=== PATIENT | female | born 1950 | race African-American/Black ===

== ENCOUNTER 2019-11-02 08:15 | Outpatient (CLI) | payer MEDICARE, OTHER, SELFPAY ==
[2019-11-02 09:08] LABS: Alanine Aminotransferase 19 U/L (4-35); Albumin Level 3.7 g/dL (3.5-5.1); Alkaline Phosphatase 115 U/L (38-126); Aspartate Amino Transferase 32 U/L (14-36); Bilirubin,Total 0.9 mg/dL (0.2-1.3); Blood Urea Nitrogen 19 mg/dL (7-17); Calcium 8.6 mg/dL (8.4-10.2); Carbon Dioxide 30 mmol/L (22-30); Chloride 105 mmol/L (98-107); Cholesterol 190 mg/dL (0-200); Estimated Glomerular Filt Rate 60; Glucose 102 mg/dL (65-105); HDL Direct 57 mg/dL; Sodium 138 mmol/L (137-145); Triglycerides 86 mg/dL (<150)
[2019-11-02 09:19] LABS: LDL Cholesterol Direct 71 mg/dL
[2019-11-02 09:30] LABS: Creatinine Urine 88.5 mg/dL
[2019-11-02 10:26] LABS: MALB Creatinine Ratio 401.1 mg/g (0-30)
== END 2019-11-02 08:16 | disposition home or self-care (01) ==
LOC: ANHLAB 08:18
PROVIDERS: PCP Internal Medicine; Visit Provider Physician Assistant
DX: E11.9 Type 2 diabetes mellitus without complications (principal)
CPT/HCPCS: 36415; 80053; 80061; 82043; 83036

== ENCOUNTER 2019-11-04 10:29 | Outpatient (CLI) | payer MEDICARE, OTHER, SELFPAY ==
[2019-11-04 12:40] LABS: Add Urine Microscopic? YES; Appearance Urine Clear (Clear); Bilirubin Urine Negative (Negative); Blood Urine 3+ (Negative); Color Urine Yellow (Yellow); Glucose Urine UA Negative (Negative); Ketones Urine Negative (Negative); Leukocyte Esterase Ur Negative LEU/UL (NEGATIVE); Mucus Urine Rare /lpf; Nitrate Urine Negative (Negative); Protein Urine 2+ mg/dL (Negative); RBC Urine 0-2 /hpf (0-2); Specific Grav Ur 1.012 (1.001-1.035); Squamous Epithelial Cell Urine Occasional /hpf (Few); Urobilinogen Urine Negative mg/dL (<2.0); WBC Urine 0-3 /hpf (0-3)
== END 2019-11-04 10:30 | disposition home or self-care (01) ==
LOC: ANHLAB 10:31
PROVIDERS: PCP Internal Medicine; Visit Provider Physician Assistant
DX: R31.9 Hematuria, unspecified (principal); R53.83 Other fatigue
CPT/HCPCS: 36415; 81001; 86038; 87086

== ENCOUNTER 2019-12-23 09:17 | Outpatient (CLI) | payer MEDICARE, SELFPAY ==
[2019-12-23 09:48] LABS: Blood Urea Nitrogen 18 mg/dL (7-17); Calcium 8.7 mg/dL (8.4-10.2); Carbon Dioxide 28 mmol/L (22-30); Chloride 104 mmol/L (98-107); Estimated Glomerular Filt Rate 60; Glucose 197 mg/dL (65-105); Sodium 136 mmol/L (137-145)
== END 2019-12-23 09:18 | disposition home or self-care (01) ==
PROVIDERS: PCP Internal Medicine; Visit Provider Internal Medicine Cardiovascular Disease
DX: R06.00 Dyspnea, unspecified (principal); I50.32 Chronic diastolic (congestive) heart failure
CPT/HCPCS: 36415; 80048

== ENCOUNTER 2020-01-12 09:52 | Outpatient (CLI) | payer MEDICARE, OTHER, SELFPAY ==
--- NOTE | ~2020-01-12 | US_ITS ---
EXAMINATION: US pelvic complete w TV EXAM DATE: 01/12/2020 11:34 INDICATION: Postmenopausal bleeding. TECHNIQUE: Pelvic transabdominal and transvaginal sonogram was performed. There are multiple graysca le and Doppler images available for interpretation. There is no prior study for comparison. FINDINGS: Uterus measures 10.5 x 4.4 x 5.1 cm, is anteverted and probably has subcentimeter anterior fibroid. Endometrial stripe measures 9 mm, mildly thickened for postmenopausal status. There is no free pelvic fluid. Right adnexa: The ovary is not identified. There is no adnexal mass. Left adnexa: The ovary is not identified. There is no adnexal mass. IMPRESSION: Endometrium mildly thickened for postmenopausal status, could be hyperplasia or carcinoma . Consider histologic correlation. Reviewed, dictated and finalized at location A. IMPRESSION: Endometrium mildly thickened for postmenopausal status, could be hy perplasia or carcinoma. Consider histologic correlation.
== END 2020-01-12 09:53 | disposition home or self-care (01) ==
PROVIDERS: PCP Internal Medicine; Visit Provider Obstetrics & Gynecology
DX: N95.0 Postmenopausal bleeding (principal)
CPT/HCPCS: 76830; 76856

== ENCOUNTER 2020-01-29 09:08 | Outpatient (CLI) | payer MEDICARE, OTHER, SELFPAY ==
[2020-01-29 10:14] LABS: Hematocrit 41.7 % (37.0-47.0); Hemoglobin 13.6 g/dL (12.0-15.0); Mean Corpuscular HGB Conc 32.6 g/dl (32-36); Mean Corpuscular Hemoglobin 30.7 pg (26-34); Mean Corpuscular Volume 94.1 fl (80-100); Mean Platelet Volume 11.7 fl (7.4-10.4); Platelet Count Result 154 k/mm3 (150-375); Red Blood Count 4.43 M/mm3 (4.2-5.4); Red Cell Distribution Width 12.4 % (11.5-14.5); White Blood Count 6.8 K/mm3 (4.5-10.0)
[2020-01-29 10:25] LABS: Hemoglobin A1C 7.5 % (<5.7); Potassium 4.2 mmol/L (3.4-5.0)
[2020-01-29 10:33] LABS: Alanine Aminotransferase 20 U/L (4-35); Albumin Level 3.5 g/dL (3.5-5.1); Alkaline Phosphatase 111 U/L (38-126); Anion Gap 4 mmol/L (8-16); Aspartate Amino Transferase 30 U/L (14-36); Bilirubin,Total 0.7 mg/dL (0.2-1.3); Blood Urea Nitrogen 17 mg/dL (7-17); Calcium 8.6 mg/dL (8.4-10.2); Carbon Dioxide 29 mmol/L (22-30); Chloride 104 mmol/L (98-107); Estimated Glomerular Filt Rate 60; Glucose 164 mg/dL (65-105); Sodium 137 mmol/L (137-145)
== END 2020-01-29 09:09 | disposition home or self-care (01) ==
PROVIDERS: PCP Physician Assistant; Visit Provider Physician Assistant
DX: R53.83 Other fatigue (principal); E11.9 Type 2 diabetes mellitus without complications
CPT/HCPCS: 36415; 80053; 83036; 84443; 85027

== ENCOUNTER 2020-03-06 00:31 | Outpatient (CLI) | payer MEDICARE, OTHER, SELFPAY ==
[2020-03-06 18:12] LABS: SARS-CoV-2 RNA PCR Negative
== END 2020-03-06 00:32 | disposition home or self-care (01) ==
LOC: ANHCOVIDDT 00:31
PROVIDERS: PCP Physician Assistant; Visit Provider Obstetrics & Gynecology
DX: Z20.828 Contact with and (suspected) exposure to other viral communicable diseases (principal)
CPT/HCPCS: 87635; C9803; U0003

== ENCOUNTER 2020-03-08 02:11 | Day surgery (SDC) | payer MEDICARE, OTHER, SELFPAY ==
[2020-02-29 14:33] VITALS: BMI 44.8
[2020-03-08] VITALS (8 sets, daily range): BP systolic 109–168; BP diastolic 67–86; PULSE 68–71; RESP 12–22; TEMP 36.6–36.7; O2SAT 94–99; BMI 45.7
--- NOTE | 2020-03-08 08:41 | PM.IMHP ---
H&P: HPI History of Present Illness Date/Time: 03/08/20 08:41 Patient is a 69 y/o female presented with postmenopausal spotting over 2 months ago. Her subsequent ultrasound showed thickened endometrial stripe. Subsequent endometrial biopsy showed endometrial polyp. She was recommended for Hysteroscopy and Dilation and currettage and removal of polyp if visualized. She has had a previous D and C hysteroscopy for polyp in 2016. Chief complaint: Postmenopausal Bleeding/ Endometrial Polyp Narrative: Daisha Yoon is a 69 year old female Review of Systems Review of Systems: All systems reviewed & are unremarkable except as noted in HPI and below Cardiovascular: Cardiovascular: Reports no additional cardiovascular complaints, Denies chest pain and Denies dyspnea Respiratory: Respiratory: Reports no additional respiratory complaints and Denies dyspnea Gastrointestinal: Gastrointestinal: Reports abdominal pain, Denies change in bowel habits, Denies diarrhea, Denies nausea and Denies vomiting Genitourinary: Genitourinary: Reports pelvic pain Musculoskeletal: Musculoskeletal: Reports back pain Integumentary/Breasts: Skin/Breast: Reports system reviewed and no additional complaints, except as docu Neurologic: Reports system reviewed and no additional complaints, except as documented [facility] Family History Family History Mother Patient's mother is Hypertension Family history of type 2 diabetes mellitus Father Patient's father is Hypertension Family history of type 2 diabetes mellitus Grandparent Family history of malignant neoplasm of cervix Other Cerebrovascular accident Diabetes mellitus Family history of Alzheimer's disease Family history of cardiovascular disease Family history of congestive heart failure Family history of kidney disease Family history of sleep apnea Family history of thyroid disease Social History Social History Smoking status: Never smoker Second hand tobacco smoke exposure: No Alcohol intake: never Substance use: never Living arrangements: with family Spiritual care concerns: No Meds Home Medications and Allergies Home Medications Medication Instructions Recorded Confirmed Type aspirin 81 mg tablet,delayed 81 mg PO DAILY 05/13/19 03/08/20 History release blood sugar diagnostic #10 each 05/13/19 02/09/20 History clopidogrel 75 mg tablet 75 mg PO DAILY 05/13/19 03/08/20 History insulin lispro 100 unit/mL 1 sliding scale dose SUB-Q 05/13/19 03/08/20 History subcutaneous solution USEASDIRECTD meclizine 25 mg tablet 25 mg PO TID PRN 05/13/19 03/08/20 History nitroglycerin 0.4 mg sublingual 0.4 mg SUBLINGUAL Q5M PRN 05/13/19 03/08/20 History tablet gabapentin 600 mg tablet 1,200 mg PO BID #360 tablet 01/05/20 03/08/20 Rx albuterol sulfate 90 mcg/actuation 2 puff INHALATION Q4-6H PRN #8.5 gm 02/03/20 03/08/20 Rx aerosol inhaler ezetimibe 10 mg tablet 10 mg PO DAILY #90 tablet 02/03/20 03/08/20 Rx losartan 100 mg tablet 100 mg PO DAILY #90 tablet 02/22/20 03/08/20 Rx alprazolam [Xanax] 1 mg PO BID 02/29/20 03/08/20 History atenolol 100 mg PO HS 02/29/20 03/08/20 History furosemide [Lasix] 80 mg PO QAM 02/29/20 03/08/20 History insulin pump-infus. set-meter 02/29/20 02/29/20 History Allergies Allergy/AdvReac Type Severity Reaction Status Date / Time nitrofurantoin Allergy Intermediate DEHYDRATION Verified 03/08/20 10:47 ciprofloxacin Allergy Mild Itching Verified 03/08/20 10:47 Exam Const: Orientation/consciousness: oriented to person and oriented to place HENMT: Head: normal to inspection Eyes: General: appearance normal, both eyes and all related structures Resp: Effort & Inspection: normal respiratory effort Auscultation: clear to auscultation bilaterally Cardio: Rate: regular rate Rhythm: regular rhythm
--- NOTE | 2020-03-08 11:25 | WPDANESEPPF ---
Anes - Initial Pre Proc Eval Procedure: Operation Date: 03/08/20 12:00 Proposed Procedures p Hysteroscopy, Dilation And Curettage With Myosure - Sam Ronquillo MD Date/Time: 03/08/20 11:25 Surgeon: Sam Ronquillo MD Pre Op Diagnosis: Postmenopausal Bleeding/ Endometrial Polyp Patient Data Age: 69 Gender: F Height: 6 ft Weight: 152.9 kg Allergies Allergy/AdvReac Type Severity Reaction Status Date / Time nitrofurantoin Allergy Intermediate DEHYDRATION Verified 03/08/20 10:47 ciprofloxacin Allergy Mild Itching Verified 03/08/20 10:47 Home Medications Medication Instructions Recorded Confirmed Type aspirin 81 mg tablet,delayed 81 mg PO DAILY 05/13/19 03/08/20 History release blood sugar diagnostic #10 each 05/13/19 02/09/20 History clopidogrel 75 mg tablet 75 mg PO DAILY 05/13/19 03/08/20 History insulin lispro 100 unit/mL 1 sliding scale dose SUB-Q 05/13/19 03/08/20 History subcutaneous solution USEASDIRECTD meclizine 25 mg tablet 25 mg PO TID PRN 05/13/19 03/08/20 History nitroglycerin 0.4 mg sublingual 0.4 mg SUBLINGUAL Q5M PRN 05/13/19 03/08/20 History tablet gabapentin 600 mg tablet 1,200 mg PO BID #360 tablet 01/05/20 03/08/20 Rx albuterol sulfate 90 mcg/actuation 2 puff INHALATION Q4-6H PRN #8.5 gm 02/03/20 03/08/20 Rx aerosol inhaler ezetimibe 10 mg tablet 10 mg PO DAILY #90 tablet 02/03/20 03/08/20 Rx losartan 100 mg tablet 100 mg PO DAILY #90 tablet 02/22/20 03/08/20 Rx alprazolam [Xanax] 1 mg PO BID 02/29/20 03/08/20 History atenolol 100 mg PO HS 02/29/20 03/08/20 History furosemide [Lasix] 80 mg PO QAM 02/29/20 03/08/20 History insulin pump-infus. set-meter 02/29/20 02/29/20 History Patient hx anesthesia problems: none Family hx anesthesia problems: none PMFSH Past Medical History Medical History (Updated 03/08/20 @ 11:30 by Bhupinder Galicia MD) Morbid obesity FAY (obstructive sleep apnea) Family History Family History Mother Patient's mother is Hypertension Family history of type 2 diabetes mellitus Father Patient's father is Hypertension Family history of type 2 diabetes mellitus Grandparent Family history of malignant neoplasm of cervix Other Cerebrovascular accident Diabetes mellitus Family history of Alzheimer's disease Family history of cardiovascular disease Family history of congestive heart failure Family history of kidney disease Family history of sleep apnea Family history of thyroid disease Social History Social History Smoking status: Never smoker Second hand tobacco smoke exposure: No Alcohol intake: never Substance use: never Living arrangements: with family Spiritual care concerns: No Anes - Eval Final PreProcedure Day of Procedure 03/08/20 11:25 Patient weight: morbidly obese Heart: regular rate and rhythm Lungs: clear to auscultation Airway: Mallampati scale class II Neurological: alert and oriented Last oral intake: >/= 8 hours ASA classification: IV Emergent: no Anesthetic plan: proceed Anesthesia type and monitoring: general LMA and standard monitoring Informed Consent: The patient's anesthetic plan and its attendant risks and benefits were discussed with the patient/family/POA. Questions were solicited and answers provided to the satisfaction of the patient/family/POA.
--- NOTE | 2020-03-08 11:27 | WPDHPUPDATE1 ---
History and Physical Update Update Date/Time: 03/08/20 11:27 History and Physical has been reviewed, including an updated exam of the patient. There are NO changes in the patient's condition. Risks, benefits, and alternatives have been discussed and questions answered. Patient agrees to proceed with procedure.
[2020-03-08] MEDS: LACTATED RINGERS 1,000 ML 30 ML IV CONT (11:36)
--- NOTE | 2020-03-08 11:46 | SUR.PREOP ---
1045; PT HAS AN INSULIN PUMP AND A CONTINUOUS SENSOR FOR HER BLOOD SUGAR
--- NOTE | 2020-03-08 11:48 | SUR.PREOP ---
1135: DR SERNA CANCELLED PO TYLENOL
[2020-03-08] MEDS: ceFAZolin 3 GM/D5W 100 ML 100 ML IVPB (12:09)
[2020-03-08] MEDS: fentaNYL CITRATE INJ (*CRX) 100 MCG/2 ML VIAL 25 MCG IV PUSH (13:20)
[2020-03-08 13:25] LABS: Glucose Point of Care 131 (65-105)
--- NOTE | 2020-03-08 13:32 | PM.PROC ---
Procedure Note - Detailed Date of procedure: 03/08/20 Pre-op diagnosis: Postmenopausal Bleeding/ Endometrial Polyp Post-op diagnosis: same Procedure performed: Diagnostic Hysteroscopy and Dilation and Currettage Description of procedure: After informed consent was obtained patient was taken to the operating room. Adequate IV sedation was obtained. She then was given LMA. She was placed in high lithotomy position and prepped and draped in sterile fashion. Attention was turned to the vagina. Speculum was inserted. Single-tooth tenaculum placed on anterior lip of the cervix. The uterus was sounded to 7 centimeters. The cervix was dilated to a size 8 Julian dilator. The hysteroscope was inserted. Dilated several times since could advance the camera to entrance of cavity which appeared diffusely scarred. The camera would only advance to entrance of the rest of the cavity appeared scarred. During the currettage minimal tissue and cavity palpated scarred. The hysteroscope was removed and a sharp curettage was performed. Minimal tissue obtained. The tenaculum was removed. Small laceration at the posterior cervix from the tenaculum. Hemostasis obtained with figure of eight suture of 0 vicryl. The speculum was removed. There was a small area of stretched skin at introitus, no bleeding. The patient tolerated the procedure well. There was a 50 cc discrepancy of insufflation fluid of normal saline. Patient was taken to recovery room in stable condition the sponge count was correct x3. Anesthesia: MAC and local Surgeon: Sam Ronquillo MD Estimated blood loss (mL): 5 Drains: No Packing: No Pathology: yes (1. Endocervical currettage 2. Endometrial currettings) Complications: No immediate complications Condition: stable Disposition: same day Findings: Uterus sound to 8cm, uterine cavity normal appearing, no lesions. Insufflation fluid 1000cc/950cc.
== END 2020-03-08 14:58 | disposition home or self-care (01) ==
PROVIDERS: PCP Physician Assistant; Visit Provider Obstetrics & Gynecology
PROC: 0U5B8ZZ Destruction of Endometrium, Via Natural or Artificial Opening Endoscopic (ICD-10-PCS; CPT 58563; principal; 2020-03-08 12:00)
DX: N95.0 Postmenopausal bleeding (principal); N84.0 Polyp of corpus uteri; E11.9 Type 2 diabetes mellitus without complications; Z79.02 Long term (current) use of antithrombotics/antiplatelets; Z79.82 Long term (current) use of aspirin; Z79.4 Long term (current) use of insulin; Z96.41 Presence of insulin pump (external) (internal); G47.33 Obstructive sleep apnea (adult) (pediatric); E66.01 Morbid (severe) obesity due to excess calories; Z68.42 Body mass index [BMI] 45.0-49.9, adult
CPT/HCPCS: 58558; 88305; A9270; J0690; J1100; J2405; J2704; J3010; J7030; J7120

== ENCOUNTER 2020-04-08 01:13 | Outpatient (CLI) | payer MEDICARE, OTHER, SELFPAY ==
[2020-04-08 18:04] LABS: SARS-CoV-2 RNA PCR Negative
== END 2020-04-08 01:14 | disposition home or self-care (01) ==
LOC: ANHCOVIDDT 01:13
PROVIDERS: PCP Physician Assistant; Visit Provider Internal Medicine Critical Care Medicine
DX: R09.89 Other specified symptoms and signs involving the circulatory and respiratory systems (principal); Z20.828 Contact with and (suspected) exposure to other viral communicable diseases
CPT/HCPCS: 87635; C9803; U0003

== ENCOUNTER 2020-05-01 11:40 | Outpatient (CLI) | payer MEDICARE, OTHER, SELFPAY ==
[2020-05-01 12:35] LABS: Add Urine Microscopic? YES; Appearance Urine Clear (Clear); Bacteria Urine Trace /hpf; Bilirubin Urine Negative (Negative); Blood Urine Negative (Negative); Color Urine Straw (Yellow); Glucose Urine UA Negative (Negative); Ketones Urine Negative (Negative); Leukocyte Esterase Ur Negative LEU/UL (NEGATIVE); Mucus Urine Rare /lpf; Nitrate Urine Negative (Negative); Protein Urine 1+ mg/dL (Negative); RBC Urine 0-2 /hpf (0-2); Specific Grav Ur 1.012 (1.001-1.035); Squamous Epithelial Cell Urine Occasional /hpf (Few); Urobilinogen Urine Negative mg/dL (<2.0); WBC Urine 0-3 /hpf (0-3)
[2020-05-01 12:45] LABS: Hemoglobin A1C 7.7 % (<5.7)
[2020-05-01 12:58] LABS: Creatinine Urine 71.7 mg/dL
[2020-05-01 13:02] LABS: Microalbumin Urine Random 139.1 mg/L (0-16.7)
== END 2020-05-01 11:41 | disposition home or self-care (01) ==
LOC: ANHLAB 11:41
PROVIDERS: PCP Physician Assistant; Visit Provider Physician Assistant
DX: R31.0 Gross hematuria (principal); E11.9 Type 2 diabetes mellitus without complications
CPT/HCPCS: 36415; 81001; 82043; 83036; 87086; 87088

== ENCOUNTER 2020-05-03 09:07 | Outpatient (CLI) | payer MEDICARE, OTHER, SELFPAY ==
[2020-05-03 09:50] LABS: Alanine Aminotransferase 21 U/L (4-35); Albumin Level 3.5 g/dL (3.5-5.1); Alkaline Phosphatase 107 U/L (38-126); Anion Gap 2 mmol/L (8-16); Aspartate Amino Transferase 42 U/L (14-36); Bilirubin,Total 0.9 mg/dL (0.2-1.3); Blood Urea Nitrogen 19 mg/dL (7-17); Calcium 8.7 mg/dL (8.4-10.2); Carbon Dioxide 30 mmol/L (22-30); Chloride 105 mmol/L (98-107); Estimated Glomerular Filt Rate 60; Glucose 166 mg/dL (65-105); Potassium 4.4 mmol/L (3.4-5.0); Sodium 137 mmol/L (137-145)
== END 2020-05-03 09:08 | disposition home or self-care (01) ==
PROVIDERS: PCP Physician Assistant; Visit Provider Physician Assistant
DX: E11.9 Type 2 diabetes mellitus without complications (principal)
CPT/HCPCS: 36415; 80053

== ENCOUNTER 2020-05-29 01:00 | Outpatient (CLI) | payer MEDICARE, OTHER, SELFPAY ==
[2020-05-29 17:10] LABS: SARS-CoV-2 RNA PCR Negative
== END 2020-05-29 01:01 | disposition home or self-care (01) ==
LOC: ANHCOVIDDT 01:01
PROVIDERS: PCP Physician Assistant; Visit Provider Internal Medicine Critical Care Medicine
DX: R68.89 Other general symptoms and signs (principal); Z20.828 Contact with and (suspected) exposure to other viral communicable diseases
CPT/HCPCS: 87635; C9803; U0003

== ENCOUNTER 2020-07-04 10:31 | Outpatient (CLI) | payer MEDICARE, OTHER, SELFPAY ==
--- NOTE | ~2020-07-04 | MM_ITS ---
EXAMINATION: MM screening aggie BI w esteban HISTORY: Screening mammogram TECHNIQUE: Craniocaudal and mediolateral oblique 3-D tomosynthesis images were obtained and synthetic 2-D images were generated. CAD analysis was submitted and interpreted. COMPARISON: No prior mammogram is available for comparison at this institution. BREAST PARENCHYMAL COMPOSITION: There are scattered areas of fibroglandular density. FINDINGS: There is no evidence of suspicious mass, calcification, or architectural distortion to sugg est malignancy in either breast. IMPRESSION: 1. No mammographic evidence of malignancy. 2. Recommend routine screening mammography in one year. BI-RADS Category 1: Negative Reviewed, dictated and finalized at location A. COMMISSIONER
== END 2020-07-04 10:32 | disposition home or self-care (01) ==
PROVIDERS: PCP Physician Assistant; Visit Provider Obstetrics & Gynecology
DX: Z12.31 Encounter for screening mammogram for malignant neoplasm of breast (principal)
CPT/HCPCS: 77063; 77067

== ENCOUNTER 2020-07-25 09:05 | Outpatient (CLI) | payer MEDICARE, OTHER, SELFPAY ==
--- NOTE | 2020-08-07 13:56 | WPDHOMESLEEP ---
Sleep Study - Home Unattended Date of Study: 07/25/20 Ordering Provider: Karri Jules MD Interpreting Provider: Glenys Graham MD Home Sleep Study Type: Apnea Link Air Height: 1.83 m Weight: 151.953 kg Body Mass Index: 45.4 Neck Circumference (inches): 19 [place]: 7 Reason for Sleep Study Constant loud snoring; known FAY, wants to be treated again FAY diagnosed on a basic NPSG June 09, 2016 with moderate obstructive sleep apnea; CPAP titration 06/30/2016; 9 cm optimal pressure CPAP was taken out of the house in 2019 when she was not using it regularly Sleep History Daisha Yoon is a 70-year-old female referred by Dr Jules who treats her for HFpEF, hypertension, lower extremity edema, CAD who constantly snores and it frequently is loud enough that others complain about it. She rarely awakens at night with heartburn, belching or coughing. She never awakens from sleep feeling short of breath. She occasionally has trouble sleeping if she has a cold. She does not wake up gasping for breath at night, does not have breathing problems at night observed by others and does not sweat excessively at night. She rarely notices her heart pounding or beating irregularly night. She occasionally falls asleep during the day, rarely involuntarily never while driving. She does not fall asleep while exerting physical effort. She does not have loss of muscle tone with strong emotion. She does not have daytime difficulties due to excessive sleepiness. She does not feel paralyzed on waking or falling asleep. She denies having vivid dreamlike scenes upon awakening or falling asleep. She is never a free to go to sleep. She occasionally has nightmares. She frequently remembers her dreams. She occasionally has racing thoughts. She rarely feels sad or depressed. She occasionally has anxiety. She occasionally has muscular tension and occasionally notices parts of her body jerking. She does not kick at night. She occasionally has crawling and aching feelings in her legs. She frequently has leg pain at night and frequently has morning jaw pain. She frequently grinds her teeth during sleep. She occasionally has bothered by pain during the day, occasionally is awakened by pain at night. She frequently wakes up feeling stiff in the morning occasionally with sore achy muscles occasionally with pain in the neck and spine. She has insomnia and fatigue. Normal bedtime is 11:00 p.m. falling asleep within 1 hour waking once at night to urinate. While awake she will watch television. she then returns to sleep. She wakes the morning at 5:00 a.m.. We can schedule is the same. She estimates getting 4-5 hours of sleep on regular night. She does take naps. A short nap may be refreshing. She rarely awakens feeling refreshed. She frequently has excessive daytime sleepiness. She rarely has morning headaches. Habits: Never smoked tobacco. Caffeine she drinks soda daily. No alcohol or recreational drugs. [facility] Past Medical History Medical History (Updated 08/07/20 @ 14:02 by Glenys Graham MD) Diabetes mellitus History of completed stroke Hyperlipidemia Morbid obesity Neuropathy FAY (obstructive sleep apnea) Family History Family History Mother Patient's mother is Hypertension Family history of type 2 diabetes mellitus Father Patient's father is Hypertension Family history of type 2 diabetes mellitus Grandparent Family history of malignant neoplasm of cervix Other Cerebrovascular accident Diabetes mellitus Family history of Alzheimer's disease Family history of cardiovascular disease Family history of congestive heart failure Family history of kidney disease Family history of sleep apnea Family history of thyroid disease Social History Social History Smoking status: Never smoker Second [place]
[2020-08-07 14:12] VITALS: BMI 45.4
== END 2020-07-25 09:06 | disposition home or self-care (01) ==
LOC: ANHCSM 09:06
PROVIDERS: PCP Physician Assistant; Visit Provider Internal Medicine Cardiovascular Disease
DX: G47.33 Obstructive sleep apnea (adult) (pediatric) (principal); R94.39 Abnormal result of other cardiovascular function study; R06.00 Dyspnea, unspecified
CPT/HCPCS: 95806

== ENCOUNTER 2020-08-04 07:48 | Outpatient (CLI) | payer MEDICARE, OTHER, SELFPAY ==
[2020-08-04 08:22] LABS: Hematocrit 44.1 % (37.0-47.0); Hemoglobin 14.2 g/dL (12.0-15.0); Mean Corpuscular HGB Conc 32.2 g/dl (32-36); Mean Corpuscular Hemoglobin 30.7 pg (26-34); Mean Corpuscular Volume 95.5 fl (80-100); Mean Platelet Volume 11.2 fl (7.4-10.4); Platelet Count Result 156 k/mm3 (150-375); Red Blood Count 4.62 M/mm3 (4.2-5.4); White Blood Count 6.8 K/mm3 (4.5-10.0)
[2020-08-04 08:32] LABS: Add Urine Microscopic? YES; Appearance Urine Cloudy (Clear); Bacteria Urine Trace /hpf; Bilirubin Urine Negative (Negative); Blood Urine Negative (Negative); Color Urine Yellow (Yellow); Glucose Urine UA Negative (Negative); Ketones Urine Negative (Negative); Leukocyte Esterase Ur Negative LEU/UL (NEGATIVE); Mucus Urine Rare /lpf; Nitrate Urine Negative (Negative); Protein Urine 2+ mg/dL (Negative); RBC Urine 0-2 /hpf (0-2); Specific Grav Ur 1.019 (1.001-1.035); Squamous Epithelial Cell Urine Many /hpf (Few); Urobilinogen Urine Negative mg/dL (<2.0)
[2020-08-04 08:34] LABS: Alanine Aminotransferase 25 U/L (4-35); Albumin Level 3.8 g/dL (3.5-5.1); Alkaline Phosphatase 117 U/L (38-126); Anion Gap 5 mmol/L (8-16); Aspartate Amino Transferase 46 U/L (14-36); Bilirubin,Total 0.7 mg/dL (0.2-1.3); Blood Urea Nitrogen 18 mg/dL (7-17); Calcium 8.8 mg/dL (8.4-10.2); Carbon Dioxide 27 mmol/L (22-30); Chloride 108 mmol/L (98-107); Cholesterol 172 mg/dL (0-200); Estimated Glomerular Filt Rate 54; Glucose 141 mg/dL (65-105); HDL Direct 52 mg/dL; Potassium 3.8 mmol/L (3.4-5.0); Sodium 140 mmol/L (137-145); Triglycerides 147 mg/dL (<150)
[2020-08-04 08:45] LABS: LDL Cholesterol Direct 63 mg/dL
[2020-08-04 08:46] LABS: Creatinine Urine 192.2 mg/dL
[2020-08-04 09:01] LABS: Hemoglobin A1C 7.1 % (<5.7)
[2020-08-04 09:40] LABS: Folic Acid 7.3 ng/mL (2.76->20)
[2020-08-04 09:58] LABS: MALB Creatinine Ratio 282.6 mg/g (0-30); Microalbumin Urine Random 543.2 mg/L (0-16.7)
== END 2020-08-04 07:49 | disposition home or self-care (01) ==
LOC: ANHLAB 07:51
PROVIDERS: PCP Physician Assistant; Visit Provider Physician Assistant
DX: R53.83 Other fatigue (principal); E11.9 Type 2 diabetes mellitus without complications; N39.0 Urinary tract infection, site not specified
CPT/HCPCS: 36415; 80053; 80061; 81001; 82043; 82607; 82746; 83036; 84443; 85027; 87086; 87088

== ENCOUNTER 2020-11-14 09:58 | Outpatient (CLI) | payer MEDICARE, OTHER, SELFPAY ==
[2020-11-14 10:23] LABS: Basophils Percent Auto 0.3 % (0.2-1.2); Eosinophils Absolute Auto 0.4 K/mm3 (0-0.3); Eosinophils Percent Auto 6.2 % (0-4.4); Hemoglobin 13.5 g/dL (12.0-15.0); Immature Granulocyte Absolute 0.03 K/mm3 (0.00-0.031); Immature Granulocyte Percent A 0.4 % (0-0.5); Lymphocytes Absolute Auto 1.44 K/mm3 (0.9-3.2); Lymphocytes Percent Auto 20.6 % (18.3-44.2); Mean Corpuscular HGB Conc 31.4 g/dl (32-36); Mean Corpuscular Hemoglobin 30.3 pg (26-34); Mean Corpuscular Volume 96.6 fl (80-100); Mean Platelet Volume 11.1 fl (7.4-10.4); Monocytes Absolute Auto 0.7 K/mm3 (0.1-0.6); Neutrophils Absolute Auto 4.4 K/mm3 (1.3-6.7); Neutrophils Percent Auto 62.5 % (45.5-73.1); Platelet Count Result 147 k/mm3 (150-375); Red Blood Count 4.45 M/mm3 (4.2-5.4); Red Cell Distribution Width 12.4 % (11.5-14.5)
[2020-11-14 10:31] LABS: Add Urine Microscopic? YES; Appearance Urine Clear (Clear); Bacteria Urine Trace /hpf; Bilirubin Urine Negative (Negative); Blood Urine Negative (Negative); Color Urine Straw (Yellow); Glucose Urine UA Negative (Negative); Ketones Urine Negative (Negative); Leukocyte Esterase Ur Negative LEU/UL (NEGATIVE); Nitrate Urine Positive (Negative); Protein Urine 1+ mg/dL (Negative); RBC Urine 0-2 /hpf (0-2); Squamous Epithelial Cell Urine Few /hpf (Few); Urobilinogen Urine Negative mg/dL (<2.0)
[2020-11-14 10:35] LABS: Alanine Aminotransferase 20 U/L (4-35); Albumin Level 3.6 g/dL (3.5-5.1); Alkaline Phosphatase 120 U/L (38-126); Anion Gap 7 mmol/L (8-16); Aspartate Amino Transferase 42 U/L (14-36); Bilirubin,Total 0.8 mg/dL (0.2-1.3); Blood Urea Nitrogen 17 mg/dL (7-17); Calcium 8.9 mg/dL (8.4-10.2); Carbon Dioxide 27 mmol/L (22-30); Chloride 106 mmol/L (98-107); Cholesterol 168 mg/dL (0-200); Estimated Glomerular Filt Rate 54; Glucose 192 mg/dL (65-105); HDL Direct 61 mg/dL; Potassium 4.5 mmol/L (3.4-5.0); Sodium 140 mmol/L (137-145); Triglycerides 127 mg/dL (<150)
[2020-11-14 10:46] LABS: LDL Cholesterol Direct 49 mg/dL
[2020-11-14 10:52] LABS: Hemoglobin A1C 7.4 % (<5.7)
[2020-11-14 11:13] LABS: Creatinine Urine 62.8 mg/dL
[2020-11-14 11:18] LABS: MALB Creatinine Ratio 240.9 mg/g (0-30); Microalbumin Urine Random 151.3 mg/L (0-16.7)
[2020-11-14 11:41] LABS: Folic Acid 7.9 ng/mL (2.76->20)
== END 2020-11-14 09:59 | disposition home or self-care (01) ==
PROVIDERS: PCP Internal Medicine; Referring Provider Internal Medicine Gastroenterology; Visit Provider Internal Medicine
DX: R53.83 Other fatigue (principal); E11.9 Type 2 diabetes mellitus without complications; Z79.4 Long term (current) use of insulin; R30.0 Dysuria
CPT/HCPCS: 36415; 80053; 80061; 81001; 82043; 82607; 82746; 83036; 84443; 85025

== ENCOUNTER 2020-11-27 10:09 | Outpatient (CLI) | payer MEDICARE, OTHER, SELFPAY ==
--- NOTE | ~2020-11-27 | NM_ITS ---
EXAMINATION: NM alysha stress w perfusion DATE: 11/27/2020 13:31 INDICATION: Dyspnea on exertion. TECHNIQUE: Rest images were obtained following intravenous administration of 9.5 mCi Tc99m tetrofosmi n (Myoview). The patient was infused intravenously with Lexiscan (regadenoson). Then, 28.3 mCi Tc99m tetrofosmin (Myoview) was administered intravenously, and stress images were obtained. Data was recon structed into short axis and horizontal and vertical long axis SPECT images. Gated SPECT images were also obtained. COMPARISON: CT abdomen and pelvis 01/17/2017 FINDINGS: There is a small, mild, fixed perfusion defect involving mid anterior and mid anterolateral segments of left ventricle, consistent with infarct. No reversible component to suggest ischemia. T here is no segmental wall motion abnormality. Left ventricular ejection fraction measures 59%. IMPRESSION: 1. Small area of mild infarct involving mid anterior and mid anterolateral segments of left ventricle . Breast attenuation artifact decreases specificity. 2. Normal left ventricular ejection fraction measuring 59%. Reviewed, dictated and finalized at location A. IMPRESSION: 1. Small area of mild infarct involving mid anterior and mid anterolateral segm ents of left ventricle. Breast attenuation artifact decreases specificity. 2. Normal left ventricular ejection fraction measuring 59%.
--- NOTE | 2020-11-27 10:55 | EST_ITS ---
Patient Info Name: Daisha Yoon Age: 70 years : 1950 Gender: Female Ht: 72 in Wt: 346 lbs BSA: 2.90 m2 HR: 66 bpm BP: 153 / 96 mmHg Heart Rhythm: Sinus Rhythm Exam Date: 11/27/2020 11:39 AM Exam Location: [facility] Stress Patient Status: Outpatient Admit Date: 11/27/2020 Staff Ordering Physician: Fab Hurst PA-C Attending Provider: Fab Hurst PA-C Exam Type: CA stress alysha w NM Study Info Indications - CORONARY ARTERY DISEASE R06.02 - Shortness of breath A regadenoson stress test was performed. Summary 1. No abnormal ST/T wave changes with Lexiscan. 2. No arrhythmias were observed during the examination. 3. Please correlate with nuclear medicine images, reported separately. 4. No chest discomfort with stress test. Protocol: Lexiscan Stress ECG Details Stage: REST Duration (min): 2 min : 11 sec HR (bpm): 65 SBP (mmHg): 153 DBP (mmHg): 96 Stage: REST Duration (min): 15 min : 58 sec HR (bpm): 63 SBP (mmHg): 153 DBP (mmHg): 96 Stage: STAGE 1 Duration (min): 0 min : 59 sec HR (bpm): 67 SBP (mmHg): 153 DBP (mmHg): 96 Stage: RECOVERY Duration (min): 1 min : 0 sec HR (bpm): 72 SBP (mmHg): 136 DBP (mmHg): 68 Stage: RECOVERY Duration (min): 2 min : 0 sec HR (bpm): 70 SBP (mmHg): 136 DBP (mmHg): 68 Stage: RECOVERY Duration (min): 3 min : 0 sec HR (bpm): 71 SBP (mmHg): 124 DBP (mmHg): 64 Stage: RECOVERY Duration (min): 4 min : 0 sec HR (bpm): 69 SBP (mmHg): 124 DBP (mmHg): 64 Stage: RECOVERY Duration (min): 4 min : 27 sec HR (bpm): 68 SBP (mmHg): 124 DBP (mmHg): 64 Rest HR: 63 bpm Peak HR: 72 bpm Rest Sys BP: 153 mmHg Peak Sys BP: 136 mmHg Max Pred HR: 150 bpm % Max Pred HR: 48 % Target HR: 128 bpm Max RPP: 9,792 bpm*mmHg Total Time: 1 min : 0 sec Rest Farley BP: 96 mmHg Peak Farley BP: 68 mmHg Total Dose: 0.4 mg Resting ECG Normal sinus rhythm, PRWP, RECOVERY ROOM NURSE anteroseptal MD. Stress ECG No abnormal ST/T wave changes with Lexiscan. Arrhythmias No arrhythmias were observed during the examination. Report Signatures
== END 2020-11-27 10:10 | disposition home or self-care (01) ==
PROVIDERS: PCP Physician Assistant; Visit Provider Physician Assistant
DX: R06.02 Shortness of breath (principal)
CPT/HCPCS: 78452; 93017; A9502; J2785

== ENCOUNTER 2020-12-22 08:05 | Outpatient (CLI) | payer MEDICARE, OTHER, SELFPAY ==
--- NOTE | ~2020-12-22 | US_ITS ---
EXAMINATION: US abdomen limited DATE: 12/22/2020 09:19 INDICATION: Hepatic steatosis TECHNIQUE: Multiple grayscale and Doppler ultrasound images of the abdomen were obtained. COMPARISON: 01/20/2017 FINDINGS: The head and body of the pancreas are normal. The pancreatic tail is obscured by bowel gas. The liver is normal with normal echogenicity and echotexture. The liver surface is nodular. Normal h epatopetal flow in the main portal vein. The gallbladder is surgically absent. The normal common bile duct measures 6 mm. IMPRESSION: 1. Cirrhosis. Reviewed, dictated and finalized at location B. IMPRESSION: 1. Cirrhosis.
== END 2020-12-22 08:06 | disposition home or self-care (01) ==
PROVIDERS: PCP Physician Assistant; Visit Provider Internal Medicine Gastroenterology
DX: K76.0 Fatty (change of) liver, not elsewhere classified (principal); K74.60 Unspecified cirrhosis of liver
CPT/HCPCS: 76705

== ENCOUNTER 2021-01-19 08:01 | Outpatient (CLI) | payer MEDICARE, OTHER, SELFPAY ==
[2021-01-19 08:51] LABS: Base Excess ABG 1.5 mEq/l (+/-2.0); Fractional Inspired Oxygen 21 %; HCO3 ABG 26.9 mEq/l (22.0-26.0); Oxygen Content ABG 18.4 %vol (16.0-22.0); Oxygen Saturation ABG 96.6 % (95.0-100.0); Oxyhemoglobin 95.8 % THb (90.0-100.0); PCO2 ABG 45.3 mmHg (35.0-45.0); PO2 ABG 88.5 mmHg (80.0-100.0); PO2 FiO2 Ratio Arterial Blood 4.21 %; Total Hemoglobin 13.6 g/dL (12.0-18.0); pH ABG 7.391 (7.350-7.450)
[2021-01-19 08:52] LABS: Device ROOM AIR; Modified Allen's Test Pass; Site Drawn RIGHT RADIAL
--- NOTE | 2021-01-19 15:01 | WPDSIXMINUTE ---
Six Minute Walk Procedure Procedure Performed Pulmonary Stress Test (6 min walk) Six Minute Walk This is a 6 minute walk test. The test was performed and interpreted in accordance with the 2014 ERS/ATS task force guidelines. Findings: The patient's resting room air oxygen saturation measured by pulse oximetry was 94% and her heart rate was 77 bpm. Patient ambulated for 91 meters and oxygen saturation remained 90 to 93%. Heart rate at the end of the study was 93 bpm. The patient did not qualify for supplemental oxygen at rest or with ambulation. There are no prior studies for comparison.
--- NOTE | 2021-01-19 15:01 | WPDPFTINT ---
PFT Procedure Performed PFT Procedure Performed Spirometry with Pre/Post Bronchodilator Plethysmography (Lung Vol) Diffusing Cap (DLCO) Flow Vol Loop PFT Interpretation This is a pulmonary function test with pre and post-bronchodilator spirometry, plethysmography and diffusing capacity. The test was performed and results interpreted in accordance with the 2019 and 2005 ATS/ERS Task Force guidelines respectively using the Global Lung Function Initiative-2012 reference equations. Patient demonstrated good effort and cooperation. Reproducibility criteria were met. The quality of the pre bronchodilator spirometry maneuver was Grade A and post bronchodilator spirometry maneuver was Grade A. Findings: Spirometry: The contour of the inspiratory and expiratory flow tracing are normal. The pre bronchodilator FVC is 1.83 L, 57% predicted. The pre bronchodilator FEV1 is 1.51 L, 62% predicted. The FEV1: FVC ratio was 83%. The post bronchodilator FVC is 1.89 L, representing a 3% increase. The post bronchodilator FEV1 is 1.59 L, representing a 5% increase. Plethysmography: The total lung capacity is 3.61 L, 65% predicted. The functional residual capacity is 2.06 L, 56% predicted. The residual volume is 1.68 L, 70% predicted. Diffusing capacity: The absolute diffusion capacity is 13.7, 58% predicted. The diffusing capacity corrected for alveolar volume is 4.65, 119% predicted. The resting room air arterial blood gas demonstrates a pH of 7.39, PaCO2 of 45.3, PaO2 of 88.5. Impression: There is a moderate restrictive ventilatory abnormality. The spirometry is normal without evidence of an obstructive abnormality. There is no significant improvement after inhaling a single dose of albuterol. The absolute diffusing capacity is moderately decreased and normalizes when corrected for alveolar volume. There is a mixed acid-base disturbance with a metabolic alkalosis and a respiratory acidosis. The arterial PaO2 is normal. There are no prior studies for comparison
== END 2021-01-19 08:02 | disposition home or self-care (01) ==
LOC: ANHPFT 08:05
PROVIDERS: PCP Physician Assistant; Visit Provider Internal Medicine Pulmonary Disease
DX: G47.33 Obstructive sleep apnea (adult) (pediatric) (principal); R06.00 Dyspnea, unspecified; R94.2 Abnormal results of pulmonary function studies
CPT/HCPCS: 36415; 36600; 80048; 82805; 94060; 94618; 94726; 94729

== ENCOUNTER 2021-01-19 08:09 | Outpatient (CLI) | payer MEDICARE, OTHER, SELFPAY ==
[2021-01-19 10:07] LABS: Anion Gap 5 mmol/L (8-16); Blood Urea Nitrogen 20 mg/dL (7-17); Carbon Dioxide 27 mmol/L (22-30); Chloride 109 mmol/L (98-107); Estimated Glomerular Filt Rate 54; Glucose 110 mg/dL (65-110); Potassium 4.3 mmol/L (3.4-5.0); Sodium 141 mmol/L (137-145)
== END 2021-01-19 08:10 | disposition home or self-care (01) ==
LOC: ANHLAB 08:13
PROVIDERS: PCP Physician Assistant; Visit Provider Nurse Practitioner Adult Health
DX: R60.0 Localized edema (principal)
CPT/HCPCS: 36415; 80048

== ENCOUNTER 2021-02-02 08:43 | Outpatient (CLI) | payer MEDICARE, OTHER, SELFPAY ==
--- NOTE | ~2021-02-02 | CT_ITS ---
EXAMINATION: CT diagnostic chest wo con DATE: 02/02/2021 09:16 INDICATION: Shortness of breath TECHNIQUE: Computed tomography (CT) of the chest was performed without intravenous contrast. The dose -length product (DLP) was 1052.41 mGy-cm. Automated exposure control and iterative reconstruction sammi hnique were employed. COMPARISON: None FINDINGS: Right lung nodules measure up to 5 mm. There is mild atelectasis. The lungs are free of foc al airspace opacities. No pleural effusion or pneumothorax is identified. A 1.8 cm nodule is noted in the left thyroid lobe. No pathologically enlarged thoracic lymph nodes are identified. The heart siz e is normal. There is calcified coronary artery atherosclerosis. The gallbladder is surgically absent . There is nodularity of the liver surface. There are bridging osteophytes at multiple levels in the spine, consistent with diffuse idiopathic skeletal hyperostosis (DISH). IMPRESSION: 1. No CT correlate for the patient's symptoms. 2. Cirrhosis. 3. Right lung nodules measuring up to 5 mm. If the patient has no risk factors for malignancy, no fur ther follow up is required. If there are risk factors for malignancy (i.e., history of smoking, asbe stos or radiation exposure), consider followup CT in 12 months. Reviewed, dictated and finalized at location A. IMPRESSION: 1. No CT correlate for the patient's symptoms. 2. Cirrhosis. 3. Right lung nodules measuring up to 5 mm. If the patient has no risk factors for malignancy, no further follow up is required. If there are risk factors fo r malignancy (i.e., history of smoking, asbestos or radiation exposure), consid er followup CT in 12 months.
== END 2021-02-02 08:44 | disposition home or self-care (01) ==
LOC: ANHIMG 08:50
PROVIDERS: PCP Physician Assistant; Visit Provider Internal Medicine Pulmonary Disease
DX: R06.00 Dyspnea, unspecified (principal); J98.4 Other disorders of lung
CPT/HCPCS: 71250

== ENCOUNTER 2021-02-16 08:23 | Outpatient (CLI) | payer MEDICARE, OTHER, SELFPAY ==
[2021-02-16 09:27] LABS: Alanine Aminotransferase 19 U/L (4-35); Albumin Level 3.8 g/dL (3.5-5.1); Alkaline Phosphatase 121 U/L (38-126); Anion Gap 5 mmol/L (8-16); Aspartate Amino Transferase 34 U/L (14-36); Bilirubin,Total 0.9 mg/dL (0.2-1.3); Blood Urea Nitrogen 17 mg/dL (7-17); Calcium 8.7 mg/dL (8.4-10.2); Carbon Dioxide 28 mmol/L (22-30); Chloride 107 mmol/L (98-107); Cholesterol 154 mg/dL (0-200); Estimated Glomerular Filt Rate 45; Glucose 138 mg/dL (65-110); HDL Direct 59 mg/dL; Potassium 4.1 mmol/L (3.4-5.0); Sodium 140 mmol/L (137-145); Triglycerides 113 mg/dL (<150)
[2021-02-16 09:38] LABS: LDL Cholesterol Direct 46 mg/dL
[2021-02-16 09:48] LABS: Hemoglobin A1C 7.2 % (<5.7)
[2021-02-16 10:40] LABS: Creatinine Urine 186.1 mg/dL
[2021-02-16 11:10] LABS: MALB Creatinine Ratio 213.1 mg/g (0-30); Microalbumin Urine Random 396.5 mg/L (0-16.7)
== END 2021-02-16 08:24 | disposition home or self-care (01) ==
LOC: ANHLAB 08:27
PROVIDERS: PCP Physician Assistant; Visit Provider Physician Assistant
DX: E11.9 Type 2 diabetes mellitus without complications (principal)
CPT/HCPCS: 36415; 80053; 80061; 82043; 83036

== ENCOUNTER 2021-03-16 14:46 | Outpatient (CLI) | payer MEDICARE, OTHER, SELFPAY ==
--- NOTE | ~2021-03-16 | US_ITS ---
EXAMINATION: US thyroid EXAM DATE: 03/16/2021 16:15 INDICATION: E04.1 - Nontoxic single thyroid nodule TECHNIQUE: Multiple grayscale and Doppler images of the thyroid were obtained (by a technologist who performed the scan) and subsequently reviewed. Individual nodules and recommendations may be reporte d in accordance with TI-RADS system as designated by the 2017 ACR White Paper TI-RADS committee. The re is no prior study for comparison. FINDINGS: The right there are lobe measures 5.3 x 1.9 x 1.7 cm, the left measuring 5.4 x 2.6 x 2.6 cm. Mildly d iffusely heterogeneous thyroid echogenicity with scattered thyroid nodules. The largest thyroid nodule is in the left thyroid lobe measuring 3.6 x 2.4 x 2.2 cm , solid (2 points ), hypoechoic (2 points), wider than tall, smooth well defined margin, without echogenic foci, catego ry TR4 for this nodule. This is large enough to recommend ultrasound-guided biopsy. The largest right thyroid lobe nodule measures 1.9 x 1.4 x 1.9 cm superficially in the inferior pole, solid (2 points), hypoechoic (2 points), wider than tall, smooth well defined margin, without echoge radha foci, category TR4 for this nodule. IMPRESSION: Multinodular goiter. Largest right and left thyroid nodules are large enough to recommend ultrasound-guided FNA. Reviewed, dictated and finalized at location B. IMPRESSION: Multinodular goiter. Largest right and left thyroid nodules are lar ge enough to recommend ultrasound-guided FNA.
== END 2021-03-16 14:47 | disposition home or self-care (01) ==
LOC: ANHIMG 14:51
PROVIDERS: PCP Physician Assistant; Visit Provider Physician Assistant
DX: E04.2 Nontoxic multinodular goiter (principal)
CPT/HCPCS: 76536

== ENCOUNTER 2021-05-09 10:50 | Outpatient (CLI) | payer MEDICARE, OTHER, SELFPAY ==
--- NOTE | ~2021-05-09 | US_ITS ---
EXAMINATION: US FNA w image guidance DATE: 05/09/2021 12:21 INDICATION: Nontoxic single thyroid nodule. TECHNIQUE: The procedure and its benefits and risks were discussed with the patient. Risks specifically discusse d included bleeding. The patient verbalized understanding of the risks and agreed to proceed. The nec k was prepped and draped in the usual sterile manner. 1% lidocaine was used for local anesthesia. 6 passes were made with a 25G needle into the lesion in left thyroid lobe under ultrasound guidance. 7 passes were made with a 25-gauge needle into the lesion in right thyroid lobe under ultrasound guid ance. There were no immediate complications. The patient understood to call the ordering physician fo r results after a week and a half and verbalized that understanding. FINDINGS: Grayscale ultrasound images demonstrate needles advanced into a 3.2 cm nodule in left thyroid lobe fo r biopsy. Grayscale ultrasound images demonstrate needles advanced into a 1.9 cm nodule in right thyr oid lobe for biopsy. IMPRESSION: 1. Ultrasound-guided fine needle aspiration of a 3.2 cm nodule in left thyroid lobe. 2. Ultrasound-guided fine-needle aspiration of a 1.9 cm nodule in right thyroid lobe. Reviewed, dictated and finalized at location A. TRIC INSTALLER
--- NOTE | ~2021-05-09 | US_ITS ---
EXAMINATION: US FNA additional DATE: 05/09/2021 12:21 INDICATION: Nontoxic single thyroid nodule. TECHNIQUE: The procedure and its benefits and risks were discussed with the patient. Risks specifically discusse d included bleeding. The patient verbalized understanding of the risks and agreed to proceed. The nec k was prepped and draped in the usual sterile manner. 1% lidocaine was used for local anesthesia. 6 p asses were made with a 25G needle into the lesion in left thyroid lobe under ultrasound guidance. 7 passes were made with a 25-gauge needle into the lesion in right thyroid lobe under ultrasound guid ance. There were no immediate complications. The patient understood to call the ordering physician fo r results after a week and a half and verbalized that understanding. FINDINGS: Grayscale ultrasound images demonstrate needles advanced into a 3.2 cm nodule in left thyroid lobe fo r biopsy. Grayscale ultrasound images demonstrate needles advanced into a 1.9 cm nodule in right thyr oid lobe for biopsy. IMPRESSION: 1. Ultrasound-guided fine needle aspiration of a 3.2 cm nodule in left thyroid lobe. 2. Ultrasound-guided fine-needle aspiration of a 1.9 cm nodule in right thyroid lobe. Reviewed, dictated and finalized at location A. URCE RECOVERY ENGINEER
[2021-05-09 12:41] LABS: Alanine Aminotransferase 24 U/L (4-35); Albumin Level 3.8 g/dL (3.5-5.1); Alkaline Phosphatase 123 U/L (38-126); Anion Gap 3 mmol/L (8-16); Aspartate Amino Transferase 40 U/L (14-36); Bilirubin,Total 0.8 mg/dL (0.2-1.3); Blood Urea Nitrogen 21 mg/dL (7-17); Calcium 8.8 mg/dL (8.4-10.2); Carbon Dioxide 29 mmol/L (22-30); Chloride 103 mmol/L (98-107); Estimated Glomerular Filt Rate 49; Glucose 134 mg/dL (65-110); Potassium 4.2 mmol/L (3.4-5.0); Sodium 135 mmol/L (137-145)
[2021-05-09 12:55] LABS: Add Urine Microscopic? YES; Appearance Urine Clear (Clear); Bilirubin Urine Negative (Negative); Blood Urine 1+ (Negative); Color Urine Yellow (Yellow); Glucose Urine UA Negative (Negative); Ketones Urine Negative (Negative); Leukocyte Esterase Ur Negative LEU/UL (NEGATIVE); Mucus Urine Rare /lpf; Nitrate Urine Negative (Negative); Protein Urine 2+ mg/dL (Negative); RBC Urine 0-2 /hpf (0-2); Specific Grav Ur 1.018 (1.001-1.035); Squamous Epithelial Cell Urine Moderate /hpf (Few); Urobilinogen Urine Negative mg/dL (<2.0); WBC Urine 0-3 /hpf (0-3)
[2021-05-09 13:06] LABS: Creatinine Urine 165.2 mg/dL
[2021-05-09 13:09] LABS: Hemoglobin A1C 7.2 % (<5.7)
[2021-05-09 13:27] LABS: MALB Creatinine Ratio 150.7 mg/g (0-30); Microalbumin Urine Random 248.9 mg/L (0-16.7)
== END 2021-05-09 10:51 | disposition home or self-care (01) ==
PROVIDERS: PCP Physician Assistant; Visit Provider Otolaryngology
DX: E04.1 Nontoxic single thyroid nodule (principal); E11.9 Type 2 diabetes mellitus without complications; N39.0 Urinary tract infection, site not specified
CPT/HCPCS: 10005; 10006; 36415; 80053; 81001; 82043; 83036; 88173; 88305

== ENCOUNTER 2021-08-17 10:56 | Outpatient (CLI) | payer MEDICARE, OTHER, SELFPAY ==
[2021-08-17 11:45] LABS: Add Urine Microscopic? NO; Appearance Urine Clear (Clear); Bilirubin Urine Negative (Negative); Blood Urine Negative (Negative); Color Urine Straw (Yellow); Glucose Urine UA Negative (Negative); Ketones Urine Negative (Negative); Leukocyte Esterase Ur Negative LEU/UL (NEGATIVE); Nitrate Urine Negative (Negative); Protein Urine Negative (Negative); Specific Grav Ur 1.005 (1.001-1.035); Urobilinogen Urine Negative mg/dL (<2.0)
[2021-08-17 11:52] LABS: Alanine Aminotransferase 20 U/L (4-35); Albumin Level 3.8 g/dL (3.5-5.1); Alkaline Phosphatase 123 U/L (38-126); Anion Gap 3 mmol/L (8-16); Aspartate Amino Transferase 33 U/L (14-36); Bilirubin,Total 1.1 mg/dL (0.2-1.3); Blood Urea Nitrogen 16 mg/dL (7-17); Calcium 8.4 mg/dL (8.4-10.2); Carbon Dioxide 29 mmol/L (22-30); Chloride 106 mmol/L (98-107); Estimated Glomerular Filt Rate 49; Glucose 176 mg/dL (65-110); Potassium 4.1 mmol/L (3.4-5.0); Sodium 138 mmol/L (137-145)
[2021-08-17 12:12] LABS: Free T4 Free Thyroxine 1.12 ng/mL (0.78-2.19)
[2021-08-17 12:13] LABS: Creatinine Urine 21.5 mg/dL; Hemoglobin A1C 7.3 % (<5.7)
[2021-08-17 12:17] LABS: MALB Creatinine Ratio 140.5 mg/g (0-30); Microalbumin Urine Random 30.2 mg/L (0-16.7)
== END 2021-08-17 10:57 | disposition home or self-care (01) ==
PROVIDERS: PCP Physician Assistant; Visit Provider Physician Assistant
DX: E11.41 Type 2 diabetes mellitus with diabetic mononeuropathy (principal); E78.2 Mixed hyperlipidemia; N39.0 Urinary tract infection, site not specified; Z79.4 Long term (current) use of insulin; I12.9 Hypertensive chronic kidney disease with stage 1 through stage 4 chronic kidney disease, or unspecified chronic kidney disease; N18.30 Chronic kidney disease, stage 3 unspecified; E04.1 Nontoxic single thyroid nodule; I25.10 Atherosclerotic heart disease of native coronary artery without angina pectoris; Z78.9 Other specified health status; Z46.81 Encounter for fitting and adjustment of insulin pump
CPT/HCPCS: 36415; 80053; 81003; 82043; 83036; 84439; 84443; 87086

== ENCOUNTER 2021-09-12 08:04 | Outpatient (CLI) | payer MEDICARE, OTHER, SELFPAY ==
[2021-09-12 08:30] VITALS: PULSE 88; O2SAT 97
[2021-09-12 08:35] VITALS: PULSE 88; O2SAT 87
[2021-09-12 08:40] VITALS: PULSE 100; O2SAT 93
[2021-09-12 08:45] VITALS: PULSE 89; O2SAT 92
--- NOTE | 2021-09-12 10:32 | HOMEO2EVAL ---
Evaluation was performed at [facility] Home Oxygen Evaluation RC: Home Oxygen (O2) Evaluation Start: 09/12/21 10:28 Freq: Status: Active Protocol: RPE Activity Type Activity Date Activity User E-Sign Co-Sign Detail Recorded Client Recorded Date Recorded By Document 09/12/21 08:30 [email or web address] [id number] 09/12/21 10:30 KMV Document 09/12/21 08:35 KMV [email or web address] 09/12/21 10:30 KMV Document 09/12/21 08:40 KMV [email or web address] 09/12/21 10:32 KMV Document 09/12/21 08:45 KMV [email or web address] 09/12/21 10:32 KMV 09/12/21 09/12/21 09/12/21 08:30 08:35 08:40 Home O2 Evaluation Test Phase Resting Exercise Exercise Oxygen Delivery Room Air Room Air Nasal Cannula Oxygen Flow Rate (L/min) 2 Pulse Oximetry (90-100 %) 97 93 Pulse Rate (60-100 beats/min) 88 88 100 Activity Tolerance Poor Poor Rating of Perceived Dyspnea (PD) +3 Moderate Difficulty, But Can Continue Rate of Perceived Exertion (PE) 13 Somewhat 20 Hard Ambulation Distance (feet) 400 Ambulation Distance (meters) 121.91 Treatment Charges O2 Evaluation - Outpatient 09/12/21 08:45 Home O2 Evaluation Test Phase Resting Oxygen Delivery Room Air Oxygen Flow Rate (L/min) Pulse Oximetry (90-100 %) 92 Pulse Rate (60-100 beats/min) 89 Activity Tolerance Rating of Perceived Dyspnea (PD) Rate of Perceived Exertion (PE) Ambulation Distance (feet) Ambulation Distance (meters) Treatment Charges
== END 2021-09-12 08:05 | disposition home or self-care (01) ==
LOC: ANHPFT 08:05
PROVIDERS: PCP Physician Assistant; Visit Provider Physician Assistant
DX: R06.02 Shortness of breath (principal)
CPT/HCPCS: 94618

== ENCOUNTER 2021-09-21 12:35 | Outpatient (CLI) | payer MEDICARE, OTHER, SELFPAY ==
--- NOTE | ~2021-09-21 | US_ITS ---
EXAMINATION: US pelvic complete DATE: 09/21/2021 13:30 INDICATION: Postmenopausal bleeding. TECHNIQUE: Multiple transabdominal sonographic images of the pelvis were obtained. The patient refuse d transvaginal imaging. COMPARISON: None. FINDINGS: The uterus measures 11.0 x 6.9 x 5.1 cm. There is no free fluid in the pelvis. The endometrial comple x measures 12 mm in thickness. The ovaries are not visualized. IMPRESSION: 1. Thickened endometrial complex. The differential diagnosis includes endometrial hyperplasia, polyp, and carcinoma. Biopsy is recommended. Reviewed, dictated and finalized at location B. IMPRESSION: 1. Thickened endometrial complex. The differential diagnosis includes endometri al hyperplasia, polyp, and carcinoma. Biopsy is recommended.
[2021-09-21 13:05] VITALS: PULSE 82; O2SAT 97
[2021-09-21 13:10] VITALS: PULSE 102; O2SAT 87
[2021-09-21 13:15] VITALS: PULSE 103; O2SAT 88
[2021-09-21 13:20] VITALS: PULSE 105; O2SAT 91
[2021-09-21 13:30] VITALS: PULSE 84; O2SAT 97
--- NOTE | 2021-09-21 14:03 | HOMEO2EVAL ---
Evaluation was performed at [facility] Home Oxygen Evaluation RC: Home Oxygen (O2) Evaluation Start: 09/21/21 13:59 Freq: Status: Active Protocol: RPE Activity Type Activity Date Activity User E-Sign Co-Sign Detail Recorded Client Recorded Date Recorded By Document 09/21/21 13:05 DJO [email or web address] 09/21/21 14:02 DJO Document 09/21/21 13:10 DJO [email or web address] 09/21/21 14:02 DJO Document 09/21/21 13:15 DJO [email or web address] 09/21/21 14:02 DJO Document 09/21/21 13:20 [email or web address] [email or web address] 09/21/21 14:02 DJO Document 09/21/21 13:30 [email or web address] [email or web address] 09/21/21 14:02 DJO 09/21/21 09/21/21 09/21/21 13:05 13:10 13:15 Home O2 Evaluation Test Phase Resting Exercise Exercise Oxygen Delivery Room Air Room Air Nasal Cannula Oxygen Flow Rate (L/min) 1 Pulse Oximetry (90-100 %) 97 87 L 88 L Pulse Rate (60-100 beats/min) 82 102 H 103 H Activity Tolerance Ambulation Distance (feet) Ambulation Distance (meters) Treatment Charges O2 Evaluation - Outpatient 09/21/21 09/21/21 13:20 13:30 Home O2 Evaluation Test Phase Exercise Resting Oxygen Delivery Nasal Cannula Room Air Oxygen Flow Rate (L/min) 2 Pulse Oximetry (90-100 %) 91 97 Pulse Rate (60-100 beats/min) 105 H 84 Activity Tolerance Poor Ambulation Distance (feet) 300 Ambulation Distance (meters) 91.43 Treatment Charges
== END 2021-09-21 12:36 | disposition home or self-care (01) ==
LOC: ANHIMG 12:45
PROVIDERS: PCP Physician Assistant; Visit Provider Obstetrics & Gynecology
DX: N95.0 Postmenopausal bleeding (principal)
CPT/HCPCS: 76856; 94618

== ENCOUNTER 2021-12-01 08:35 | Outpatient (CLI) | payer MEDICARE, SELFPAY ==
[2021-12-01 09:04] LABS: Basophils Percent Auto 0.3 % (0.2-1.2); Eosinophils Absolute Auto 0.4 K/mm3 (0-0.3); Eosinophils Percent Auto 5.2 % (0-4.4); Hematocrit 41.5 % (37.0-47.0); Hemoglobin 12.8 g/dL (12.0-15.0); Immature Granulocyte Absolute 0.02 K/mm3 (0.00-0.031); Immature Granulocyte Percent A 0.3 % (0-0.5); Lymphocytes Absolute Auto 1.41 K/mm3 (0.9-3.2); Mean Corpuscular HGB Conc 30.8 g/dl (32-36); Mean Corpuscular Volume 97.4 fl (80-100); Mean Platelet Volume 10.9 fl (7.4-10.4); Monocytes Absolute Auto 0.7 K/mm3 (0.1-0.6); Monocytes Percent Auto 10.1 % (2.6-8.5); Neutrophils Absolute Auto 4.2 K/mm3 (1.3-6.7); Neutrophils Percent Auto 63.1 % (45.5-73.1); Platelet Count Result 161 k/mm3 (150-375); Red Blood Count 4.26 M/mm3 (4.2-5.4); Red Cell Distribution Width 12.6 % (11.5-14.5); White Blood Count 6.7 K/mm3 (4.5-10.0)
[2021-12-01 10:30] LABS: Creatinine Urine 123.9 mg/dL
[2021-12-01 10:54] LABS: MALB Creatinine Ratio 202.9 mg/g (0-30); Microalbumin Urine Random 251.4 mg/L (0-16.7)
[2021-12-01 11:12] LABS: Hemoglobin A1C 7.3 % (<5.7)
[2021-12-01 11:29] LABS: Alanine Aminotransferase 22 U/L (6-35); Albumin Level 3.5 g/dL (3.5-5.1); Alkaline Phosphatase 125 U/L (38-126); Anion Gap 5 mmol/L (8-16); Aspartate Amino Transferase 37 U/L (14-36); Bilirubin,Total 0.9 mg/dL (0.2-1.3); Blood Urea Nitrogen 16 mg/dL (7-17); Calcium 8.5 mg/dL (8.4-10.2); Carbon Dioxide 26 mmol/L (22-30); Chloride 106 mmol/L (98-107); Cholesterol 165 mg/dL (0-200); Estimated Glomerular Filt Rate 54; Glucose 123 mg/dL (65-110); HDL Direct 52 mg/dL; Potassium 4.1 mmol/L (3.4-5.0); Sodium 137 mmol/L (137-145); Triglycerides 130 mg/dL (<150)
[2021-12-01 11:40] LABS: LDL Cholesterol Direct 51 mg/dL
[2021-12-01 12:35] LABS: Folic Acid 7.5 ng/mL (2.76->20)
== END 2021-12-01 08:36 | disposition home or self-care (01) ==
PROVIDERS: PCP Physician Assistant; Visit Provider Internal Medicine
DX: E66.01 Morbid (severe) obesity due to excess calories (principal); Z79.4 Long term (current) use of insulin; Z68.42 Body mass index [BMI] 45.0-49.9, adult; R53.83 Other fatigue; E11.9 Type 2 diabetes mellitus without complications; G47.33 Obstructive sleep apnea (adult) (pediatric)
CPT/HCPCS: 36415; 80053; 80061; 82043; 82607; 82746; 83036; 84443; 85025

== ENCOUNTER 2021-12-19 01:21 | Day surgery (SDC) | payer MEDICARE, OTHER, SELFPAY ==
[2021-12-12 13:14] VITALS: BMI 49.3
--- NOTE | 2021-12-12 13:19 | PC.NURSE ---
Report to the Outpatient Waiting Room, entrance under the green pavilion located off [facility], at time _0930_ on date _[id number]_. OR Time: _1130_. - You and your visitor will be asked a series of questions to screen for COVID 19 for your protection. - Only one visitor is allowed at this time. - The patient visitor is requested to leave or wait in car when not with patient. - A mask is required within the hospital. Patients may have clear liquids (water, carbonated beverages, clear teas, apple juice) until 3 hours prior to surgery with a maximum of 20 ounces. - No food from midnight until time of surgery Take the following medications with a SIP of water the morning of surgery: ____Alprazolam, Atenolol, Diltiazem and Gabapentin Medications to discontinue per physician Plavix and asprin_stopping 5 days before surgery per 's instructions. Date to take last [id number]___ Please no make-up, nail british, hairspray, perfume, deodorant, or body powder the day of surgery. No jewelry (including any body piercings) or valuables the day of surgery, leave them at home. Please take a shower or bath the night before, or the morning of, surgery with an antibacterial soap. Wear comfortable, loose fitting clothing. - Jewelry must be removed prior to entering the operating room. Rings and piercings that are not removed may be cut off. - The hospital will not accept responsibility for valuables. - Please leave all valuables, including medications, at home the day of surgery. If you are going home after surgery, a licensed national dedicated truck driver must drive you home. - NO public transportation without another adult. - We recommend that an adult stay with you for 24 hours following discharge. - We also recommend that you do not drive, make important decision, drink alcoholic beverages, or take any drugs that were not prescribed by your health care provider for at least 24 hours after your discharge time. Follow any additional instructions given to you from your surgeon. If you or anyone in your household have experienced Covid symptoms in the past week, please notify your surgeon or the nurse liaison at the phone number below for possible testing. Telephone instructions given to _Patient and asked if any additional questions and then verbalized understanding. Patient advised to call surgeon office or pre surgery nurse liaison [phone] if any additional questions.
--- NOTE | 2021-12-18 15:01 | WPDANESEPPF ---
Anes - Initial Pre Proc Eval Procedure: Operation Date: 12/19/21 11:00 Proposed Procedures p Hysteroscopy, Dilation and Curettage with Myosure - Sam Ronquillo MD Date/Time: 12/18/21 15:01 Surgeon: Sam Ronquillo MD Pre Op Diagnosis: post menopausal bleeding, endometrial polyp Patient Data Age: 71 Gender: F Height: 1.83 m Weight: 165 kg Allergies Allergy/AdvReac Type Severity Reaction Status Date / Time ciprofloxacin Allergy Mild Itching Verified 12/12/21 13:09 nitrofurantoin AdvReac Intermediate DEHYDRATION Verified 12/12/21 13:09 Home Medications Medication Instructions Recorded Confirmed Type aspirin 81 mg tablet,delayed 81 mg PO DAILY 05/13/19 12/12/21 History release (Adult Low Dose Aspirin) blood sugar diagnostic #10 ea 05/13/19 12/05/21 History clopidogrel 75 mg tablet (Plavix) 75 mg PO DAILY 05/13/19 12/12/21 History insulin lispro 100 unit/mL 1 sliding scale dose subcut 05/13/19 12/05/21 History subcutaneous solution (Humalog USEASDIRECTD U-100 Insulin) meclizine 25 mg tablet 25 mg PO TID PRN Vertigo 05/13/19 12/12/21 History insulin pump-infus. set-meter 02/29/20 12/05/21 History losartan 100 mg tablet 100 mg PO DAILY #90 tabs 02/18/21 12/12/21 Rx triamcinolone acetonide 0.1 % 1 applic topical BID #30 grams 02/20/21 12/12/21 Rx topical cream torsemide 20 mg tablet 20 mg PO QAM 05/15/21 12/12/21 History alprazolam 1 mg tablet (Xanax) 1 mg PO BID #180 tabs 12/04/21 12/12/21 Rx diltiazem HCl 120 mg capsule,24 120 mg PO DAILY #90 caps 12/10/21 12/12/21 Rx hr,extended release gabapentin 600 mg tablet 1,200 mg PO BID #360 tabs 12/10/21 12/12/21 Rx atenolol 100 mg tablet 100 mg PO QAM 12/12/21 12/12/21 History cyclobenzaprine 10 mg tablet 10 mg PO HS PRN muscle spasm 12/12/21 12/12/21 History ezetimibe 10 mg tablet (Zetia) 10 mg PO HS 12/12/21 12/12/21 History Patient hx anesthesia problems: none Family hx anesthesia problems: none Results Review: All pre-operative results and documents have been reviewed as part of the pre-operative evaluation. [facility] Past Medical History Medical History (Updated 12/18/21 @ 15:04 by Sohail Mcdonald MD) Aortic stenosis CHF (congestive heart failure) Diabetes mellitus History of completed stroke Hyperlipidemia Hypertension Morbid obesity Neuropathy Obstructive Sleep Apnea-Hypopnea Syndrome FAY (obstructive sleep apnea) Restrictive lung disease Family History Family History Mother Patient's mother is Hypertension Family history of type 2 diabetes mellitus Father Patient's father is Hypertension Family history of type 2 diabetes mellitus Grandparent Family history of malignant neoplasm of cervix Other Cerebrovascular accident Diabetes mellitus Family history of Alzheimer's disease Family history of cardiovascular disease Family history of congestive heart failure Family history of kidney disease Family history of sleep apnea Family history of thyroid disease Social History Social History Smoking status: Never smoker Second hand tobacco smoke exposure: No Alcohol intake: never Substance use: never Living arrangements: with family Spiritual care concerns: No Anes - Eval Final PreProcedure Day of Procedure 12/18/21 15:01 Patient weight: morbidly obese Heart: regular rate and rhythm Lungs: clear to auscultation Airway: Mallampati scale class II Neurological: alert and oriented Last oral intake: >/= 8 hours ASA classification: IV Emergent: no Anesthetic plan: proceed Anesthesia type and monitoring: general LMA and standard monitoring Results Review: All pre-operative results and documents have been reviewed as part of the pre-operative evaluation. Informed Consent: The patient's anesthetic plan and its attendant risks and benefits were discussed with the
[2021-12-19] VITALS (9 sets, daily range): BP systolic 125–168; BP diastolic 69–89; PULSE 63–69; RESP 16–20; TEMP 36.8–36.9; O2SAT 98–100
[2021-12-19] MEDS: ACETAMINOPHEN 500 MG TABLET 1000 MG PO (09:46)
--- NOTE | 2021-12-19 10:06 | PM.IMHP ---
H&P: HPI History of Present Illness Date/Time: 12/19/21 10:06 Chief Complaint: Postmenopausal bleeding Narrative: Patient with history of postmenopausal bleeding/spotting starting in June 2021. She had subsequent ultrasound which showed thickened endometrial stripe and subsequent office biopsy showed endometrial polyp. She has been recommended for D and C hysteroscopy and myosure removal of lesion if present. She had a D and C hysteroscopy in 2017 which showed a polyp. Review of Systems Review of Systems: All systems reviewed & are unremarkable except as noted in HPI and below Constitutional: Constitutional: Reports no additional constitutional complaints Eyes: Eyes: Reports no additional eye complaints Cardiovascular: Cardiovascular: Reports no additional cardiovascular complaints Respiratory: Respiratory: Reports no additional respiratory complaints and Reports dyspnea Gastrointestinal: Gastrointestinal: Reports no additional gastrointestinal complaints Genitourinary: Genitourinary: Reports no additional female genitourinary complaints and Reports as per HPI Integumentary/Breasts: Skin/Breast: Reports system reviewed and no additional complaints, except as docu Neurologic: Reports system reviewed and no additional complaints, except as documented Psychiatric: Psychiatric: Reports no additional psychiatric complaints Hematologic/Lymphatic: Hematologic/Lymphatic: Reports no additional hematologic/lymphatic complaints [facility] Past Medical History Medical History Aortic stenosis CHF (congestive heart failure) Diabetes mellitus History of completed stroke Hyperlipidemia Hypertension Morbid obesity Neuropathy Obstructive Sleep Apnea-Hypopnea Syndrome FAY (obstructive sleep apnea) Restrictive lung disease Family History Family History Mother Patient's mother is Hypertension Family history of type 2 diabetes mellitus Father Patient's father is Hypertension Family history of type 2 diabetes mellitus Grandparent Family history of malignant neoplasm of cervix Other Cerebrovascular accident Diabetes mellitus Family history of Alzheimer's disease Family history of cardiovascular disease Family history of congestive heart failure Family history of kidney disease Family history of sleep apnea Family history of thyroid disease Social History Social History Smoking status: Never smoker Second hand tobacco smoke exposure: No Alcohol intake: never Substance use: never Living arrangements: with family Spiritual care concerns: No Meds Home Medications and Allergies Home Medications Medication Instructions Recorded Confirmed Type aspirin 81 mg tablet,delayed 81 mg PO DAILY 05/13/19 12/19/21 History release (Adult Low Dose Aspirin) blood sugar diagnostic #10 ea 05/13/19 12/05/21 History clopidogrel 75 mg tablet (Plavix) 75 mg PO DAILY 05/13/19 12/19/21 History insulin lispro 100 unit/mL 1 sliding scale dose subcut 05/13/19 12/19/21 History subcutaneous solution (Humalog USEASDIRECTD U-100 Insulin) meclizine 25 mg tablet 25 mg PO TID PRN Vertigo 05/13/19 12/19/21 History insulin pump-infus. set-meter 02/29/20 12/05/21 History losartan 100 mg tablet 100 mg PO DAILY #90 tabs 02/18/21 12/19/21 Rx triamcinolone acetonide 0.1 % 1 applic topical BID #30 grams 02/20/21 12/19/21 Rx topical cream torsemide 20 mg tablet 20 mg PO QAM 05/15/21 12/19/21 History alprazolam 1 mg tablet (Xanax) 1 mg PO BID #180 tabs 12/04/21 12/19/21 Rx diltiazem HCl 120 mg capsule,24 120 mg PO DAILY #90 caps 12/10/21 12/19/21 Rx hr,extended release gabapentin 600 mg tablet 1,200 mg PO BID #360 tabs 12/10/21 12/19/21 Rx atenolol 100 mg tablet 100 mg PO QAM 12/12/21 12/19/21 History cyclobenzaprine 10 mg tablet 10 mg P
[2021-12-19 10:09] LABS: Glucose Point of Care 169 mg/dl (65-105)
[2021-12-19] MEDS: LACTATED RINGERS 1,000 ML 30 ML IV CONT (10:12)
--- NOTE | 2021-12-19 10:13 | WPDHPUPDATE1 ---
History and Physical Update Update Date/Time: 12/19/21 10:13 History and Physical has been reviewed, including an updated exam of the patient. There are NO changes in the patient's condition. Risks, benefits, and alternatives have been discussed and questions answered. Patient agrees to proceed with procedure.
[2021-12-19] MEDS: ceFAZolin 3 GM/D5W 100 ML 100 ML IVPB (11:27)
[2021-12-19] MEDS: LIDOCAINE HCL 1% LOCAL INJ 20 ML VIAL 10 ML INFILTRATE (11:47)
--- NOTE | 2021-12-19 12:05 | W.PM.PROC2 ---
Procedure Note - Detailed Date of Procedure 01/09/22 Pre-op Diagnosis post menopausal bleeding, endometrial polyp Post-op Diagnosis Same Procedure Performed Hysteroscopy with Dilation and curettage and removal of endometrial lesion in lower uterine cavity. The rest of the cavity was atrophic appearing. Surgeon Sam Ronquillo MD Anesthesia MAC and Local Indications Postmenopausal bleeding with endometrial polyp on endometrial biopsy Findings Bilobed endometrial polyp appearing lesions at lower uterine on left, fully excised. The rest of cavity was atrophic appearing. Description of Procedure after informed consent was obtained patient was taken to operating room and anesthesia was implemented. examine under anesthesia was performed. No masses palpated. She was prepped and draped in sterile fashion. Speculum inserted. Single tooth tenaculum placed on cervix. 10cc of 1% lidocaine plain injected at cervicovaginal interface at 2,5,8,10 oclock. Uterus sound to 8cm. Cervix dilated to 8 good dilator. Hysteroscope inserted. Cavity visualized. Polyp structure visualized. Camera removed and the myosure was inserted with the camera and the structure was removed completely with the myosure. A curettage was then performed on the cavity with scant tissue. Camera removed. Tenaculum removed. Hemostasis noted. Patient tolerated procedure well. sponge count correct. Estimated Blood Loss 5 Drains No Packing No Pathology Yes (myosure currettings with scant endometrial currettings) Complications No immediate complications Condition Stable Disposition PACU [facility] Billing Surgery - Charge Forward: Surgery Billing
[2021-12-19 12:41] LABS: Glucose Point of Care 133 mg/dl (65-105)
[2021-12-19] MEDS: oxyCODONE HCL (*CRX) 5 MG TAB IR PO (13:34)
--- NOTE | 2021-12-19 13:43 | SUR.PHASEII ---
RN called office to clarify when to resume aspirin and plavix.
--- NOTE | 2021-12-19 18:17 | SUR.PHASEII ---
Patient wears 2-3L nasal cannula Home O2.
== END 2021-12-19 14:52 | disposition home or self-care (01) ==
PROVIDERS: PCP Physician Assistant; Visit Provider Obstetrics & Gynecology
PROC: 0U5B8ZZ Destruction of Endometrium, Via Natural or Artificial Opening Endoscopic (ICD-10-PCS; CPT 58563; principal; 2021-12-19 11:00)
DX: N95.0 Postmenopausal bleeding (principal); N84.0 Polyp of corpus uteri; I11.0 Hypertensive heart disease with heart failure; I50.9 Heart failure, unspecified; E78.5 Hyperlipidemia, unspecified; E11.40 Type 2 diabetes mellitus with diabetic neuropathy, unspecified; G47.33 Obstructive sleep apnea (adult) (pediatric); I35.0 Nonrheumatic aortic (valve) stenosis; E66.01 Morbid (severe) obesity due to excess calories; Z68.42 Body mass index [BMI] 45.0-49.9, adult; Z79.82 Long term (current) use of aspirin; Z86.73 Personal history of transient ischemic attack (TIA), and cerebral infarction without residual deficits; Z79.4 Long term (current) use of insulin
CPT/HCPCS: 58558; 82948; 88305; A9270; J0690; J2405; J2704; J3010; J7030; J7120

== ENCOUNTER 2022-02-27 12:24 | Outpatient (CLI) | payer MEDICARE, OTHER, SELFPAY ==
--- NOTE | ~2022-02-27 | XR_ITS ---
EXAMINATION: XR chest 2V DATE: 02/27/2022 12:47 INDICATION: Shortness of breath TECHNIQUE: PA and lateral views of the chest are obtained. COMPARISON: 08/09/2017; CT, 02/02/2021 FINDINGS: The lungs are free of acute opacities. The appearance of a right apical lung nodule appears to be related to degenerative changes at the first costochondral junction. No pleural effusion or pn eumothorax. The cardiomediastinal silhouette is normal. There are bridging osteophytes at multiple le vels in the spine, consistent with diffuse idiopathic skeletal hyperostosis (DISH). IMPRESSION: 1. No acute cardiopulmonary abnormality. Reviewed, dictated and finalized at location A.
== END 2022-02-27 12:25 | disposition home or self-care (01) ==
PROVIDERS: PCP Physician Assistant; Visit Provider Physician Assistant
DX: R06.02 Shortness of breath (principal)
CPT/HCPCS: 71046

== ENCOUNTER 2022-04-02 08:55 | Outpatient (CLI) | payer MEDICARE, OTHER, SELFPAY ==
[2022-04-02 09:45] LABS: Alanine Aminotransferase 21 U/L (6-35); Albumin Level 3.9 g/dL (3.5-5.1); Alkaline Phosphatase 123 U/L (38-126); Anion Gap 11 mmol/L (8-16); Aspartate Amino Transferase 36 U/L (14-36); Bilirubin,Total 0.9 mg/dL (0.2-1.3); Blood Urea Nitrogen 20 mg/dL (7-17); Calcium 8.6 mg/dL (8.4-10.2); Carbon Dioxide 28 mmol/L (22-30); Chloride 103 mmol/L (98-107); Estimated Glomerular Filt Rate 49; Glucose 143 mg/dL (65-110); Sodium 142 mmol/L (137-145)
[2022-04-02 10:47] LABS: Appearance Urine Clear (Clear); Bilirubin Urine 1+ (Negative); Blood Urine Negative (Negative); Color Urine Yellow (Yellow); Glucose Urine UA Negative (Negative); Ketones Urine Negative (Negative); Leukocyte Esterase Ur Negative LEU/UL (NEGATIVE); Nitrate Urine Negative (Negative); Protein Urine 2+ mg/dL (Negative); Specific Grav Ur 1.025 (1.001-1.035); Urobilinogen Urine 0.2 mg/dL (<2.0)
[2022-04-02 10:59] LABS: Add Urine Microscopic? YES; Bacteria Urine Trace /hpf; RBC Urine 0-2 /hpf (0-2); Squamous Epithelial Cell Urine Occasional /hpf (Few); WBC Urine 0-3 /hpf (0-3)
[2022-04-02 11:10] LABS: Hemoglobin A1C 7.5 % (<5.7)
== END 2022-04-02 08:56 | disposition home or self-care (01) ==
PROVIDERS: PCP Physician Assistant; Visit Provider Physician Assistant
DX: E11.9 Type 2 diabetes mellitus without complications (principal); E03.9 Hypothyroidism, unspecified; R31.9 Hematuria, unspecified; R53.83 Other fatigue
CPT/HCPCS: 36415; 80053; 81001; 83036; 84443; 87086; 87147; 87181; 87186

== ENCOUNTER 2022-05-02 16:13 | Outpatient (CLI) | payer MEDICARE, OTHER, SELFPAY ==
--- NOTE | ~2022-05-02 | CT_ITS ---
EXAMINATION: CT chest high resolution wo co DATE: 05/02/2022 16:36 INDICATION: Nodules, pulmonary fibrosis TECHNIQUE: Computed tomography (CT) of the chest was performed without intravenous contrast. Automate d exposure control and iterative reconstruction technique were employed. Exam dose: 1052.41 mGy-cm t otal exam DLP. COMPARISON: 02/27/2022 PA and lateral chest 02/02/2021 CDT diagnostic chest FINDINGS: Left thyroid lobe enlargement and mild calcification. Consider thyroid ultrasound examinati on for more definitive evaluation as clinically indicated. No hilar or mediastinal mass lesion or lymphadenopathy. There is aortic and great vessel calcification in addition to prominent coronary artery calcification . No thoracic aortic aneurysm. Normal heart size. No pericardial or pleural effusion. Approximately 3.5 mm stable middle lobe nodule. No new or enlarging pulmonary mass is noted since 02/02. No pulmonary infiltrate or consolidation. Chronic mild discoid scarring of the lingula. No int erstitial fibrosis. Normal morphology of the adrenal glands. There is surface nodularity of liver suggesting cirrhosis. Status post cholecystectomy. Cervical spondylosis. Diffuse idiopathic skeletal hyperostosis of the thoracic spine. IMPRESSION: Stable approximately 3 x 5 mm middle lobe nodule No suspicious pulmonary mass or significant new or developing pulmonary mass lesion since 02/02/2021 No evidence of pulmonary interstitial fibrosis Cirrhosis Status post cholecystectomy Cervical spondylosis Diffuse idiopathic skeletal hyperostosis of the thoracic spine Reviewed, dictated and finalized at Location A. Reviewed, dictated and finalized at location B. UM EXHIBIT DESIGNER IMPRESSION: Stable approximately 3 x 5 mm middle lobe nodule No suspicious pulmonary mass or significant new or developing pulmonary mass [place] since 02/02/2021 No evidence of pulmonary interstitial fibrosis Cirrhosis Status post cholecystectomy Cervical spondylosis Diffuse idiopathic skeletal hyperostosis of the thoracic spine
== END 2022-05-02 16:14 | disposition home or self-care (01) ==
LOC: ANHIMG 16:19
PROVIDERS: PCP Physician Assistant; Visit Provider Internal Medicine Critical Care Medicine
DX: J84.10 Pulmonary fibrosis, unspecified (principal); J98.4 Other disorders of lung; K76.0 Fatty (change of) liver, not elsewhere classified; Z90.49 Acquired absence of other specified parts of digestive tract; M47.892 Other spondylosis, cervical region; M48.14 Ankylosing hyperostosis [Forestier], thoracic region
CPT/HCPCS: 71250

== ENCOUNTER 2022-10-15 08:27 | Outpatient (CLI) | payer MEDICARE, OTHER, SELFPAY ==
[2022-10-15 09:19] LABS: Appearance Urine Clear (Clear); Bacteria Urine None Seen /hpf; Bilirubin Urine Negative (Negative); Blood Urine Negative (Negative); Color Urine Yellow (Yellow); Glucose Urine UA Negative (Negative); Ketones Urine Negative (Negative); Leukocyte Esterase Ur Negative LEU/UL (NEGATIVE); Nitrate Urine Negative (Negative); Non Pathogenic Casts 0-2; Protein Urine 1+ mg/dL (Negative); RBC Urine 0-2 /hpf (0-2); Specific Grav Ur 1.023 (1.001-1.035); Squamous Epithelial Cell Urine None seen /hpf (Few); WBC Urine 0-5 /hpf (0-3); pH Urine 5.5 (5.0-9.0)
[2022-10-15 09:22] LABS: Alanine Aminotransferase 28 U/L (6-35); Albumin Level 3.9 g/dL (3.5-5.1); Alkaline Phosphatase 142 U/L (38-126); Anion Gap 6 mmol/L (8-16); Aspartate Amino Transferase 36 U/L (14-36); Bilirubin,Total 0.8 mg/dL (0.2-1.3); Blood Urea Nitrogen 22 mg/dL (7-17); Calcium 8.6 mg/dL (8.4-10.2); Carbon Dioxide 29 mmol/L (22-30); Chloride 105 mmol/L (98-107); Estimated Glomerular Filt Rate 49; Glucose 146 mg/dL (65-110); Hemoglobin A1C 7.3 % (<5.7); Potassium 4.4 mmol/L (3.4-5.0); Sodium 140 mmol/L (137-145)
[2022-10-15 09:27] LABS: Add Urine Microscopic? YES
[2022-10-15 09:58] LABS: Microalbumin Urine Random 186.8 mg/L (0-16.7)
== END 2022-10-15 08:28 | disposition home or self-care (01) ==
PROVIDERS: PCP Physician Assistant; Visit Provider Physician Assistant
DX: R31.0 Gross hematuria (principal); N39.0 Urinary tract infection, site not specified; I25.10 Atherosclerotic heart disease of native coronary artery without angina pectoris; E11.69 Type 2 diabetes mellitus with other specified complication; E78.2 Mixed hyperlipidemia; Z46.81 Encounter for fitting and adjustment of insulin pump; E11.65 Type 2 diabetes mellitus with hyperglycemia; Z79.4 Long term (current) use of insulin; G47.33 Obstructive sleep apnea (adult) (pediatric); Z99.89 Dependence on other enabling machines and devices
CPT/HCPCS: 36415; 80053; 81001; 82043; 82607; 83036; 87086

== ENCOUNTER 2023-01-30 11:09 | Outpatient (CLI) | payer MEDICARE, OTHER, SELFPAY ==
--- NOTE | ~2023-01-30 | XR_ITS ---
Clinical Indication: Shortness of breath PA and lateral views of the chest: Comparison: 02/27/2022 Findings: The lungs are clear, without evidence of focal consolidation or pleural effusion. Cardiome diastinal silhouette is within normal limits. Bones and soft tissues are unremarkable. Impression: Normal chest. Reviewed, dictated and finalized at location . Impression: Normal chest.
[2023-01-30 12:05] LABS: Basophils Percent Auto 0.1 % (0.2-1.2); Eosinophils Absolute Auto 0.4 K/mm3 (0-0.3); Eosinophils Percent Auto 5.7 % (0-4.4); Hematocrit 42.9 % (37.0-47.0); Hemoglobin 13.5 g/dL (12.0-15.0); Immature Granulocyte Absolute 0.03 K/mm3 (0.00-0.031); Immature Granulocyte Percent A 0.4 % (0-0.5); Lymphocytes Absolute Auto 1.29 K/mm3 (0.9-3.2); Lymphocytes Percent Auto 18.5 % (18.3-44.2); Mean Corpuscular HGB Conc 31.5 g/dl (32-36); Mean Corpuscular Hemoglobin 31.3 pg (26-34); Mean Corpuscular Volume 99.5 fl (80-100); Mean Platelet Volume 11.3 fl (7.4-10.4); Monocytes Absolute Auto 0.7 K/mm3 (0.1-0.6); Monocytes Percent Auto 9.3 % (2.6-8.5); Neutrophils Absolute Auto 4.6 K/mm3 (1.3-6.7); Platelet Count Result 162 k/mm3 (150-375); Red Blood Count 4.31 M/mm3 (4.2-5.4); Red Cell Distribution Width 12.3 % (11.5-14.5)
[2023-01-30 12:20] LABS: Alanine Aminotransferase 23 U/L (6-35); Albumin Level 3.7 g/dL (3.5-5.1); Alkaline Phosphatase 125 U/L (38-126); Anion Gap 2 mmol/L (8-16); Aspartate Amino Transferase 38 U/L (14-36); Bilirubin,Total 0.9 mg/dL (0.2-1.3); Blood Urea Nitrogen 17 mg/dL (7-17); Calcium 8.6 mg/dL (8.4-10.2); Carbon Dioxide 32 mmol/L (22-30); Chloride 104 mmol/L (98-107); Cholesterol 157 mg/dL (0-200); Estimated Glomerular Filt Rate 49; Glucose 122 mg/dL (65-110); HDL Direct 47 mg/dL; Potassium 4.3 mmol/L (3.4-5.0); Sodium 138 mmol/L (137-145); Triglycerides 114 mg/dL (<150)
[2023-01-30 12:26] LABS: NT Pro B Type Natriuretic Pept 205 pg/mL (19.9-100)
[2023-01-30 12:32] LABS: LDL Cholesterol Direct 61 mg/dL
[2023-01-30 12:45] LABS: Hemoglobin A1C 6.8 % (<5.7)
[2023-01-30 13:22] LABS: Folic Acid 7.3 ng/mL (2.76->20)
== END 2023-01-30 11:10 | disposition home or self-care (01) ==
PROVIDERS: PCP Physician Assistant; Visit Provider Nurse Practitioner Family
DX: R06.09 Other forms of dyspnea (principal); E11.9 Type 2 diabetes mellitus without complications; R53.83 Other fatigue; I51.89 Other ill-defined heart diseases
CPT/HCPCS: 36415; 71046; 80053; 80061; 82607; 82746; 83036; 83880; 84443; 85025

== ENCOUNTER 2023-04-10 07:26 | Outpatient (CLI) | payer MEDICARE, OTHER, SELFPAY ==
--- NOTE | ~2023-04-10 | US_ITS ---
EXAMINATION: US retroperitoneal comp DATE: 04/10/2023 10:25 INDICATION: Peripheral vascular disease and chronic cystitis without hematuria TECHNIQUE: Multiple ultrasound grayscale images of the kidneys were obtained. COMPARISON: None. FINDINGS: The right kidney which is poorly visualized due to body habitus measures 10.6 x 4.9 x 5.7 cm. The lef t kidney measures 12.4 x 6.0 x 5.5 cm. The kidneys demonstrate normal echogenicity. There is no hydro nephrosis in either kidney. No stones identified. The bladder is appears unremarkable also poorly vi sualized but appears unremarkable. IMPRESSION: 1. Normal kidneys without hydronephrosis. Reviewed, dictated and finalized at location A. STIAN SCIENCE PRACTITIONER
--- NOTE | ~2023-04-10 | US_ITS ---
EXAMINATION: US art doppler w press LE DATE: 04/10/2023 10:23 INDICATION: Peripheral vascular disease. TECHNIQUE: Segmental pressures and plethysmographic and Doppler waveforms of the brachial and lower e xtremity arteries were obtained. COMPARISON: None. FINDINGS: Right and left brachial artery pressures of 118 mm Hg and 147 mm Hg, respectively, are concordant (no rmal difference <= 30 mmHg). The right ankle-brachial index (DIMITRIOS) is 1.20 (normal >= 0.9-1.0). The right great toe-brachial index (TBI) is 0.74 (normal >= 0.65). Arterial Doppler waveforms are biphasic from common femoral artery to the ankle. The left DIMITRIOS is 1.16. The left TBI is 0.61. Arterial Doppler waveforms are biphasic from common femor al artery to the ankle. IMPRESSION: 1. Mildly decreased left TBI, consistent with left-sided arterial occlusive disease. Normal ABIs and right TBI. Reviewed, dictated and finalized at location E. RNMENT GUARD IMPRESSION: 1. Mildly decreased left TBI, consistent with left-sided arterial occlusive dis ease. Normal ABIs and right TBI.
[2023-04-10 09:14] LABS: Alanine Aminotransferase 21 U/L (6-35); Albumin Level 3.7 g/dL (3.5-5.1); Alkaline Phosphatase 114 U/L (38-126); Anion Gap 7 mmol/L (8-16); Aspartate Amino Transferase 31 U/L (14-36); Bilirubin,Total 0.9 mg/dL (0.2-1.3); Blood Urea Nitrogen 19 mg/dL (7-17); Calcium 8.7 mg/dL (8.4-10.2); Carbon Dioxide 27 mmol/L (22-30); Chloride 104 mmol/L (98-107); Estimated Glomerular Filt Rate 45; Glucose 130 mg/dL (65-110); Sodium 138 mmol/L (137-145)
[2023-04-10 09:39] LABS: Vitamin D 25 Hydroxy < 12.8 ng/mL
[2023-04-10 11:21] LABS: MALB Creatinine Ratio 64.2 mg/g (0-30); Microalbumin Urine Random 70.6 mg/L (0-16.7)
[2023-04-13 15:45] LABS: C-Peptide 2.52 ng/mL (0.80-3.85)
== END 2023-04-10 07:27 | disposition home or self-care (01) ==
PROVIDERS: PCP Physician Assistant; Visit Provider Physician Assistant
DX: E11.41 Type 2 diabetes mellitus with diabetic mononeuropathy (principal); Z79.4 Long term (current) use of insulin; I25.10 Atherosclerotic heart disease of native coronary artery without angina pectoris; E04.1 Nontoxic single thyroid nodule; G47.33 Obstructive sleep apnea (adult) (pediatric); E11.59 Type 2 diabetes mellitus with other circulatory complications; I15.2 Hypertension secondary to endocrine disorders; E11.69 Type 2 diabetes mellitus with other specified complication; E78.2 Mixed hyperlipidemia
CPT/HCPCS: 36415; 76770; 80053; 82043; 82306; 84443; 84681; 93923

== ENCOUNTER 2023-12-26 08:44 | Outpatient (CLI) | payer MEDICARE, OTHER, SELFPAY ==
--- NOTE | ~2023-12-26 | US_ITS ---
EXAMINATION: US pelvic complete DATE: 12/26/2023 09:41 INDICATION: N95.0 - Postmenopausal bleeding TECHNIQUE: Multiple transabdominal and endovaginal sonographic images of the pelvis were obtained. COMPARISON: 09/21/2021; CT abdomen pelvis 01/17/2017. FINDINGS: Uterus: 10.5 x 5.3 x 6.3 cm. Possible small calcified fibroid. Endometrial complex measures 11 mm wit h small focal collections of fluid. Right Ovary: Not visualized. Left Ovary: Not visualized. There is no free fluid in the pelvis. IMPRESSION: Thickened endometrial complex. Consider endometrial sampling. Bilateral ovaries not visualized. Reviewed, dictated and finalized at location K.
== END 2023-12-26 08:45 | disposition home or self-care (01) ==
PROVIDERS: PCP Physician Assistant; Visit Provider Obstetrics & Gynecology
DX: N95.0 Postmenopausal bleeding (principal)
CPT/HCPCS: 76856

== ENCOUNTER 2024-02-09 12:44 | Outpatient (CLI) | payer MEDICARE, OTHER, SELFPAY ==
[2024-02-09 13:26] LABS: Anion Gap 4 mmol/L (4-12); Blood Urea Nitrogen 25 mg/dL (7-17); Calcium 8.6 mg/dL (8.4-10.2); Carbon Dioxide 31 mmol/L (22-30); Chloride 98 mmol/L (98-107); Estimated Glomerular Filt Rate 41; Glucose 95 mg/dL (65-110); Sodium 133 mmol/L (137-145)
== END 2024-02-09 12:45 | disposition home or self-care (01) ==
PROVIDERS: PCP Physician Assistant; Visit Provider Anesthesiology
DX: E11.9 Type 2 diabetes mellitus without complications (principal)
CPT/HCPCS: 36415; 80048

== ENCOUNTER 2024-02-11 02:36 | Day surgery (SDC) | payer MEDICARE, OTHER, SELFPAY ==
[2024-02-05 11:32] VITALS: BMI 50.3
--- NOTE | 2024-02-05 11:39 | PC.NURSE ---
Report to the Outpatient Waiting Room, entrance under the green pavilion located off [facility], at time _0615_ on date _[id number]_. Planned Procedure Time: _0815_.? Time changes happen often and if your time is changed the preop area will call you the afternoon before. - You and your visitor will be asked to self-screen and do not enter if you have any COVID symptoms. Please call surgeon if you need to reschedule. - A mask is optional within the hospital at this time. Patients may have clear liquids (water, carbonated beverages, clear teas, apple juice) until 3 hours prior to surgery with a maximum of 20 ounces. - No food from midnight until time of surgery and no smoking Take only the following medications with a SIP of water on the morning of surgery: _Xanax, Atenolol, Diltiazem, Gabapentin and continue insulin pump. DO NOT STOP ANY OF YOUR OTHER PRESCRIPTION MEDICATIONS PRIOR TO SURGERY EXCEPT THE FOLLOWING Medications to discontinue per physician ____Plavix stop 02-06-2024 and aspirin stop 02-08-[address] Ronquillo's order._ Please no make-up, nail macedonian, hairspray, perfume, deodorant, or body powder the day of surgery.? No jewelry (including any body piercings) or valuables the day of surgery, leave them at home.? Please take a shower or bath the night before, or the morning of, surgery with an antibacterial soap.? Wear comfortable, loose fitting clothing.? - Jewelry must be removed prior to entering the operating room.? Rings and piercings that are not removed may be cut off. - The hospital will not accept responsibility for valuables.? - Please leave all valuables, including medications, at home the day of surgery. If you are going home after surgery, a licensed bus driver must drive you home.? - NO public transportation without another adult if you receive anesthesia. - We recommend that an adult stay with you for 24 hours following discharge. - We also recommend that you do not drive, make important decision, drink alcoholic beverages, or take any drugs that were not prescribed by your health care provider for at least 24 hours after your discharge time. Follow any additional instructions given to you from your surgeon. Telephone instructions given to __Regina___and asked if any additional questions and then verbalized understanding. Patient advised to call surgeon office or pre surgery nurse liaison [phone] if any additional questions.
--- NOTE | 2024-02-05 12:01 | PC.NURSE ---
I called Dr Ronquillo's office and inquired about the plavix and aspirin. Said she wanted to stop them 5 days for plavix and 3 days for aspirin.
[2024-02-11 07:11] LABS: Glucose Point of Care 131 mg/dl (65-105)
[2024-02-11] MEDS: ACETAMINOPHEN 500 MG TABLET 1000 MG PO (07:15)
[2024-02-11] MEDS: LACTATED RINGERS 1,000 ML 30 ML IV CONT (07:15)
[2024-02-11 07:27] VITALS: BMI 49.6
[2024-02-11 07:28] VITALS: BP 135/64; PULSE 67; RESP 20; TEMP 36.8; O2SAT 98
--- NOTE | 2024-02-11 07:29 | WPDHPUPDATE1 ---
History and Physical Update Update Date/Time: 02/11/24 07:29 History and Physical has been reviewed, including an updated exam of the patient. There are NO changes in the patient's condition. Patient's insurance does not cover IUD and she can't pay for it, therefore will not insert IUD. Will perform D and C hysteroscopy and removal of endometrial lesion if present. Risks, benefits, and alternatives have been discussed and questions answered. Patient agrees to proceed with procedure.
--- NOTE | 2024-02-11 07:54 | WPDANESEPPF ---
Anes - Initial Pre Proc Eval Procedure: Operation Date: 02/11/24 08:15 Proposed Procedures p Hysteroscopy Dilation and Curettage with Removal of Any Endometrial Lesions, if Necessary - Sam Ronquillo MD Date/Time: 02/11/24 07:54 Surgeon: Sam Ronquillo MD Pre Op Diagnosis: post menopausal bleeding,thickened endometrium Patient Data Age: 73 Gender: F Height: 1.83 m Weight: 166 kg Last Vital Signs Temp 98.3 F 02/11/24 07:28 Pulse 67 02/11/24 07:28 Resp 20 02/11/24 07:28 BP 135/64 02/11/24 07:28 Pulse Ox 98 02/11/24 07:28 O2 Del Method Room Air 02/11/24 07:28 Allergies Allergy/AdvReac Type Severity Reaction Status Date / Time ciprofloxacin Allergy Mild Itching Verified 02/11/24 07:20 nitrofurantoin AdvReac Intermediate DEHYDRATION Verified 02/11/24 07:20 Home Medications Medication Instructions Recorded Confirmed Type aspirin 81 mg tablet,delayed 81 mg PO DAILY 05/13/19 02/05/24 History release (Adult Low Dose Aspirin) blood sugar diagnostic #10 ea 05/13/19 02/05/24 History clopidogrel 75 mg tablet (Plavix) 75 mg PO DAILY 05/13/19 02/05/24 History insulin lispro 100 unit/mL 1 sliding scale dose subcut 05/13/19 02/05/24 History subcutaneous solution (Humalog USEASDIRECTD U-100 Insulin) meclizine 25 mg tablet 25 mg PO TID PRN Vertigo 05/13/19 02/05/24 History insulin pump-infus. set-meter 02/29/20 02/05/24 History triamcinolone acetonide 0.1 % 1 applic topical BID #30 grams 02/20/21 02/05/24 Rx topical cream torsemide 20 mg tablet 20 mg PO QAM 05/15/21 02/05/24 History cyclobenzaprine 10 mg tablet 10 mg PO HS PRN muscle spasm 12/12/21 02/05/24 History ondansetron HCl 4 mg tablet 4 - 8 mg PO Q8H PRN nausea and 10/29/22 02/05/24 Rx vomiting #30 tabs losartan 100 mg tablet 100 mg PO DAILY #90 tabs 01/23/23 02/05/24 Rx atenolol 100 mg tablet See Rx Instructions .Route 04/10/23 02/05/24 Rx .COMPLEX #90 tabs gabapentin 600 mg tablet 1,200 mg PO BID #360 tabs 10/01/23 02/05/24 Rx nystatin 100,000 unit/gram topical 1 applic topical BID #30 grams 10/28/23 02/05/24 Rx cream tramadol 50 mg tablet 50 mg PO Q8H PRN pain #60 tabs 11/14/23 02/05/24 Rx diltiazem HCl 120 mg See Rx Instructions .Route 12/26/23 02/05/24 Rx capsule,extended release 24 hr, .COMPLEX #90 caps controlled (DILT-XR) benzonatate 200 mg capsule 200 mg PO TID PRN cough #30 caps 01/15/24 02/05/24 Rx alprazolam 1 mg tablet (Xanax) 1 mg PO BID #180 tabs 01/29/24 02/05/24 Rx Laboratory Tests 02/11/24 07:08 POC Capillary Glucose 131 H mg/dl (65-105) Patient hx anesthesia problems: none Family hx anesthesia problems: none Results Review: All pre-operative results and documents have been reviewed as part of the pre-operative evaluation. [facility] Past Medical History Medical History Aortic stenosis CHF (congestive heart failure) Diabetes mellitus History of completed stroke Hyperlipidemia Hypertension Morbid obesity Neuropathy Obstructive Sleep Apnea-Hypopnea Syndrome FAY (obstructive sleep apnea) Restrictive lung disease Uterine fibroid Surgical History Surgical History History of dilation and curettage Family History Family History Mother Patient's mother is Hypertension Family history of type 2 diabetes mellitus Father Patient's father is Hypertension Family history of type 2 diabetes mellitus Grandparent Family history of malignant neoplasm of cervix Other Cerebrovascular accident Diabetes mellitus Family history of Alzheimer's disease Family history of cardiovascular disease Family history of congestive heart failure Family history of kidney disease Family history of sleep apnea Family history of thyroid disease Social History Social History (Reviewed 02/03/24
[2024-02-11] MEDS: ceFAZolin 3 GM/D5W 100 ML 100 ML IVPB (07:58)
[2024-02-11] MEDS: LIDOCAINE HCL 1% LOCAL INJ 10 ML VIAL INFILTRATE (07:58)
--- NOTE | 2024-02-11 08:36 | W.PM.PROC2 ---
Procedure Note - Detailed Date of Procedure 02/11/24 Pre-op Diagnosis post menopausal bleeding,thickened endometrium, history of endometrial polyps Post-op Diagnosis Same Procedure Performed Hysteroscopy and dilation and curettage with removal of multiple polypoid endometrial lesions Surgeon Sam Ronquillo MD Anesthesia MAC and Local Indications Postmenopausal bleeding and thickened endometrial stripe Findings Uterus sound to 6cm. Multiple polypoid growth in cavity, the rest of the cavity was atrophic, minimal tissue obtained with curettage. Description of Procedure After informed consent was obtained patient was taken to the operating room and adequate IV sedation was administered. Attention was turned to the vagina. Speculum was inserted. Single-tooth tenaculum placed on the anterior lip of the cervix. Bladder drain of 300cc of urine. The uterus was sounded to 6 cm. The cervix was dilated to an 4 good dilator. The hysteroscope was inserted into the cavity. The findings were several polyps in the cavity. The Aveta instrument medium size was used and all of polyps removed. Cavity clear an atrophic appearing after removal of lesion. A curettage was performed with minimal tissue obtained. The hysteroscope was removed the single-tooth tenaculum was removed hemostasis was noted at the tenaculum site. Sponge count correct. The patient taken to recovery in stable condition. Estimated Blood Loss 5 Drains No Packing No Pathology Yes (Shavings and curettage) Complications No immediate complications Condition Stable Disposition Observation [facility] Billing Surgery - Charge Forward: Surgery Billing
[2024-02-11 08:40] VITALS: BP 107/62; PULSE 61; RESP 14; O2SAT 100
[2024-02-11 08:48] LABS: Glucose Point of Care 132 mg/dl (65-105)
[2024-02-11 09:00] VITALS: BP 110/68; PULSE 62; RESP 20
[2024-02-11 09:30] VITALS: BP 131/79; PULSE 61; RESP 20
[2024-02-11 09:50] VITALS: BP 122/74; PULSE 60; RESP 20
== END 2024-02-11 09:55 | disposition home or self-care (01) ==
PROVIDERS: PCP Physician Assistant; Visit Provider Obstetrics & Gynecology
PROC: 0U5B8ZZ Destruction of Endometrium, Via Natural or Artificial Opening Endoscopic (ICD-10-PCS; CPT 58563; principal; 2024-02-11 08:15)
DX: N84.0 Polyp of corpus uteri (principal); R93.89 Abnormal findings on diagnostic imaging of other specified body structures; E11.9 Type 2 diabetes mellitus without complications; I35.0 Nonrheumatic aortic (valve) stenosis; I11.0 Hypertensive heart disease with heart failure; I50.9 Heart failure, unspecified; E78.5 Hyperlipidemia, unspecified; G47.33 Obstructive sleep apnea (adult) (pediatric); J98.4 Other disorders of lung; E66.01 Morbid (severe) obesity due to excess calories; Z68.42 Body mass index [BMI] 45.0-49.9, adult; Z79.82 Long term (current) use of aspirin; Z79.02 Long term (current) use of antithrombotics/antiplatelets; Z79.4 Long term (current) use of insulin; Z79.891 Long term (current) use of opiate analgesic; Z96.41 Presence of insulin pump (external) (internal); Z98.890 Other specified postprocedural states; Z86.73 Personal history of transient ischemic attack (TIA), and cerebral infarction without residual deficits; Z80.49 Family history of malignant neoplasm of other genital organs; Z82.49 Family history of ischemic heart disease and other diseases of the circulatory system
CPT/HCPCS: 58558; 82948; 88305; A9270; J0690; J1100; J2250; J2405; J2704; J3010; J7120

== ENCOUNTER 2024-05-28 10:36 | Outpatient (CLI) | payer MEDICARE, OTHER, SELFPAY ==
--- NOTE | ~2024-05-28 | US_ITS ---
US pelvic complete Ordering provider: Sam Ronquillo MD History: . N85.00 - Endometrial hyperplasia, unspecified . Comparison: None. Technique: Transabdominal ultrasound of the pelvis (Doppler ultrasound interrogation techniques used as needed for this exam.) FINDINGS: CERVIX: Normal. UTERUS: Measures 9.9x 5.4x 5.8 cm in length which is within normal limits and is anteverted. Hyperec hoic area is seen which is most likely a fibroid measuring 0.9 x 1.1 x 1.3 cm. ENDOMETRIUM: Normal in thickness measuring 6 mm. (Note: the premenopausal endometrium may measure up to 16 mm when in the secretory phase.) No endometrial masses, cysts or fluid. CUL DE SAC: No free fluid. RIGHT OVARY: Not visualized. LEFT OVARY: Not visualized. ADNEXA: Normal. No mass. IMPRESSION: Small fibroid. Otherwise, normal pelvic ultrasound. Reviewed, dictated and finalized at location A. [employer] PIT SUPERVISOR
== END 2024-05-28 10:37 | disposition home or self-care (01) ==
LOC: MICIMG 10:37
PROVIDERS: PCP Physician Assistant; Visit Provider Obstetrics & Gynecology
DX: D25.9 Leiomyoma of uterus, unspecified (principal)
CPT/HCPCS: 76856